=== PATIENT | female | born 1950 | race Caucasian/White ===

== ENCOUNTER → 2016-12-16 | Outpatient (CLI) | payer OTHER ==
[~2016-12-16] MED LIST: AMLO-114 PO; AMLO10TA88 PO; ASCA500 PO; BNC/40 PO; CLR10 PO; EZET10TA47 PO; HYDR25TA4 PO; KRIL1000; METO100T14 PO; METO50TA17 PO; MISCCAP80 PO; MULTTAB58 PO; PRAV20TA2 PO; PRVC/40 PO; RXC5 PO; SOLI5TAB2 PO
--- NOTE | 2016-12-16 14:53 | DIAGNOSTIC IMAGING REPORT ---
MRI OF THE LUMBAR SPINE WITHOUT IV CONTRAST CLINICAL HISTORY: Low back pain. Right hip pain. COMPARISON STUDY: CT scan of the abdomen and pelvis dated 08/09/2013. TECHNIQUE: MRI of the lumbar spine is performed utilizing various T1 and T2-weighted sequences in the axial and sagittal planes. IV contrast was not administered for this examination. FINDINGS: Lumbar spine: Vertebral body height and alignment are maintained throughout the lumbar spine. No destructive bony lesion is seen. Hemangiomas are identified within the bodies of L1, L2, and L5. The transverse and spinous processes appear intact. There is no evidence of spondylolysis. Intervertebral discs: There is mild degenerative disc desiccation throughout the lumbar spine. The disc heights appear preserved. Spine: The visualized spinal cord is normal in morphology and signal intensity. The conus medullaris terminates at the level of L1. The nerve roots of the cauda equina are normal in morphology. L1-L2: Unremarkable. L2-L3: There is minimal posterior disc bulge. In conjunction with hypertrophy of the ligamentum flavum, there is minimal acquired compromise of the central canal with a minimum AP diameter of 10 mm. There is mild bilateral subarticular stenosis. Facet arthropathy is of no consequence. The neural foramina are widely patent. L3-L4: There is minimal posterior disc bulge. In conjunction with hypertrophy of the ligamentum flavum, there is moderate central canal stenosis at this level. The minimum AP canal diameter measures 6 mm. Facet arthropathy is of no consequence. The neural foramina are patent. There is mild bilateral subarticular stenosis. L4-L5: There is minimal posterior disc bulge. The central canal is patent. Facet arthropathy is of no consequence. There is a left-sided facet effusion. There is minimal bilateral subarticular stenosis. L5-S1: Facet arthropathy is of no consequence. The central canal and neural foramina are widely patent. Sacrum: Visualized sacrum is normal in morphology and signal intensity. There are two Tarlov cysts identified at the S1 and S2 levels which measure up to 1.7 cm. Soft tissues: There is mild fatty atrophy of the paraspinous musculature. Subcentimeter cyst is identified in the left kidney. The imaged retroperitoneal structures are otherwise grossly unremarkable but incompletely evaluated. A circumaortic left renal vein is incidentally noted. IMPRESSION: 1. Lumbosacral spondylosis as above with moderate acquired compromise of the central canal at L3-L4. See discussion for detailed [id number] analysis. 2. No destructive bony lesion is identified. Dictated: 12/16/2016 2:09 PM Transcribed: 12/16/2016 2:52 PM [email or web address] Electronically signed by: Yuri Sol M.D. 12/16/2016 2:56 PM Dictated Date/Time: 12/16/2016 2:09 PM
== END | disposition home or self-care (01) ==
LOC: C.MRIBC 12:59
PROVIDERS: ATTEND Pain Medicine Interventional Pain Medicine
DX: M47.817 Spondylosis without myelopathy or radiculopathy, lumbosacral region (principal)

== ENCOUNTER 2017-03-24 09:53 | Inpatient (IN) | payer OTHER, MEDICARE ==
[2017-03-16 14:01] VITALS: BMI 49.0
--- NOTE | 2017-03-16 14:22 | PAT Medication Instructions ---
Service Date Mar 16, 2017. Current Home Medication List Amlodipine (Norvasc), 10 MG PO QAM Ascorbic Acid (Vitamin C), 500 MG PO QAM Hydrochlorothiazide (Hctz), 25 MG PO QAM Loratadine (Claritin), 10 MG PO QAM Metoprolol Tartrate (Metoprolol Tartrate), 50 MG PO BID Multiple Vitamin (Multivitamin), 1 TAB PO QAM Olmesartan Medoxomil (Benicar), 40 MG PO QAM Pravastatin Sod (Pravastatin Sodium), 40 MG PO HS Probiotic Product (Probiotic), 1 CAP PO HS Medication Instructions For Your Scheduled Surgery - Hold the following medications the morning of surgery: Ascorbic Acid (Vitamin C), 500 MG PO QAM Hydrochlorothiazide (Hctz), 25 MG PO QAM Loratadine (Claritin), 10 MG PO QAM Multiple Vitamin (Multivitamin), 1 TAB PO QAM Olmesartan Medoxomil (Benicar), 40 MG PO QAM - Take the following medications the morning of surgery with a sip of water OTHERWISE NOTHING TO EAT OR DRINK AFTER MIDNIGHT: Amlodipine (Norvasc), 10 MG PO QAM Metoprolol Tartrate (Metoprolol Tartrate), 50 MG PO BID - Take the following medications as scheduled the night before surgery: Pravastatin Sod (Pravastatin Sodium), 40 MG PO HS Probiotic Product (Probiotic), 1 CAP PO HS Metoprolol Tartrate (Metoprolol Tartrate), 50 MG PO BID If you have any questions please call us at [phone] or [phone] or [phone]
--- NOTE | 2017-03-16 15:13 | DIAGNOSTIC IMAGING REPORT ---
CHEST 2 VIEWS ROUTINE CLINICAL HISTORY: Preoperative chest COMPARISON STUDY: No previous studies for comparison. FINDINGS: The heart is mildly enlarged. There is aortic tortuosity. There is no focal pulmonary consolidation. There is no failure. There are no pleural effusions. Degenerative changes are present within the spine.[ IMPRESSION: No active disease in the chest. Electronically signed by: Juan Manuel Sidhu M.D. 03/16/2017 3:10 PM Dictated Date/Time: 03/16/2017 3:10 PM
[2017-03-16 15:31] LABS: URINE APPEARANCE CLEAR (CLEAR); URINE BILIRUBIN NEG (NEG); URINE COLOR YELLOW; URINE EPITHELIAL CELL AUTO >30 /lpf (0-5); URINE NITRITE NEG (NEG); URINE SPECIFIC GRAVITY 1.021 (1.000-1.030); UROBILINOGEN NEG (NEG)
[2017-03-16 15:32] LABS: MANUAL MICROSCOPIC REQUIRED? NO; REVIEW REQ? NO
[2017-03-16 16:03] LABS: BUN/CREATININE RATIO 16.1 (10-20); CALCIUM 9.5 mg/dl (8.5-10.1); CREATININE 1.1 mg/dl (0.60-1.20); POTASSIUM 3.4 mmol/L (3.5-5.1)
[~2017-03-24] VITALS: Ht 165.1 cm; Wt 134.7 kg
[2017-03-24] VITALS (8 sets, daily range): BP systolic 96–140; BP diastolic 56–82; PULSE 75–105; TEMP 36.3–36.7; O2SAT 92–96; Ht 165.1 cm; Wt 134.7 kg
[~2017-03-24 09:53] MED LIST changes: -AMLO10TA88 PO; +CEFAZOLIN 3000 MG/65 ML D5W IV SCH; -EZET10TA47 PO; -KRIL1000; +LACTATED RINGER'S 1000ML 1,000 ML IV SCH; -METO100T14 PO; -PRAV20TA2 PO; -RXC5 PO; -SOLI5TAB2 PO
[2017-03-24] MEDS ORDERED: MEPERIDINE HCL 25 MG/ML CARP IV PRN (10:15)
[2017-03-24] MEDS ORDERED: HYDROmorphone INJ 1 MG/ML SYR IV PRN (10:15)
[2017-03-24] MEDS ORDERED: FENTANYL CITRATE INJ 50 MCG/1 ML 2 ML VIAL IV PRN (10:15)
[2017-03-24] MEDS ORDERED: EpHEDrine SULFATE INJ 50 MG/ML AMP IV PRN (10:15)
[2017-03-24] MEDS ORDERED: ATROPINE SULFATE 0.1 MG/ML 5ML SYR IV PRN (10:15)
[2017-03-24] MEDS ORDERED: LABETALOL HCL IV 5 MG/ML 20ML IV PRN (10:15)
[2017-03-24] MEDS ORDERED: ONDANSETRON INJ 2 MG/ML 2 ML VIAL IV PRN ×2 (10:15→15:15)
--- NOTE | 2017-03-24 12:34 | History and Physical ---
History & Physical Date Mar 24, 2017. Chief Complaint back and leg pain History of Present Illness The patient is a 67 year old female with complaints of Additional History Hepatic Disease: No Endocrine Disorder: No Kidney Disease: No Hypertension: No Heart Disease: No Bleeding Tendencies: No Infectious Diseases: No Allergies Coded Allergies: Diazepam (Verified Allergy, Intermediate, ANAPHYLAXIS, 03/24/17) PATIENT BECAME VERY HYPER Chlordiazepoxide (Verified Allergy, Mild, ANAPHYLAXIS, 03/24/17) PATIENT BECAME VERY HYPER Home Medications Scheduled Amlodipine (Norvasc), 10 MG PO QAM Ascorbic Acid (Vitamin C), 500 MG PO QAM Hydrochlorothiazide (Hctz), 25 MG PO QAM Loratadine (Claritin), 10 MG PO QAM Metoprolol Tartrate (Metoprolol Tartrate), 50 MG PO BID Multiple Vitamin (Multivitamin), 1 TAB PO QAM Olmesartan Medoxomil (Benicar), 40 MG PO QAM Pravastatin Sod (Pravastatin Sodium), 40 MG PO HS Probiotic Product (Probiotic), 1 CAP PO HS Physical Examination Skin: warm/dry, no rash Eyes: normal inspection, EOMI, sclerae normal ENT: normal ENT inspection, pharynx normal Head: normocephalic, atraumatic Neck: supple, no adenopathy, trachea midline Respiratory/Chest: lungs clear, normal breath sounds, no respiratory distress Cardiovascular: regular rate, rhythm, no edema, no murmur Abdomen / GI: normal bowel sounds, non tender Back: normal inspection Extremities: normal inspection, normal range of motion Neurologic/Psych: no motor/sensory deficits, alert, normal reflexes, oriented x 3 Diagnosis lumbar stenosis Plan of Treatment decompression fusion L3-4
--- NOTE | 2017-03-24 12:35 | History & Physical Bridge Note ---
H&P Re-Evaluation Bridge Note: I have examined the patient, reviewed the History & Physical and in the interval since the performance of the History & Physical I have noted the following changes of clinical significance: No changes noted
[2017-03-24] MEDS ORDERED: FENTANYL CITRATE INJ 50 MCG/1 ML 2 ML VIAL ONE ×3 (12:45→15:38)
[2017-03-24] MEDS ORDERED: BUPIVACAINE/EPINEPHRINE 0.5% MPF 1:200,000 30 ML VIAL ONE (13:10)
[2017-03-24] MEDS ORDERED: SODIUM CHLORIDE 0.9% PF 50 ML VIAL ONE (13:10)
[2017-03-24] MEDS ORDERED: BACITRACIN 50000 UNIT VIAL ONE (13:10)
[2017-03-24] MEDS ORDERED: MIDAZOLAM HCL 1 MG/ML 2ML VIAL ONE (13:17)
[2017-03-24] MEDS ORDERED: HYDROmorphone INJ 2 MG/ML SYR/VIAL ONE ×2 (13:55→14:13)
[2017-03-24] MEDS ORDERED: LIDOCAINE HCL 2% 2 ML VIAL (20MG/ML) ONE (14:17)
[2017-03-24] MEDS ORDERED: DEXAMETHASONE SOD INJ 4 MG/ML VIAL ONE (14:17)
[2017-03-24] MEDS ORDERED: ROCURONIUM BROMIDE 10 MG/ML 5 ML VIAL ONE (14:17)
[2017-03-24] MEDS ORDERED: ONDANSETRON INJ 2 MG/ML 2 ML VIAL ONE (14:17)
[2017-03-24] MEDS ORDERED: PROPOFOL IV EMULSION 10 MG/ML 20 ML VIAL IV ONE (14:17)
[2017-03-24] MEDS ORDERED: SODIUM CHLORIDE 0.9% 1000ML 1,000 ML IV SCH (15:11)
--- NOTE | 2017-03-24 15:11 | [facility] Post Operative Brief Note ---
Immediate Operative Summary Operative Date Mar 24, 2017. Pre-Operative Diagnosis Lumbar Spinal Stenosis Post-Operative Diagnosis same as pre-operative Procedure(s) Performed L3-4 DECOMPRESSION AND INSTRUMENTED FUSION, INTERBODY FUSION L3-4, USE OF INFUSE AND EMI Surgeon Dr. Jaswinder Cormier Pharmacist Manager Surgeon(s) Queenie Sargent PA-C Estimated Blood Loss 250ml Findings stenosis Specimens None
[2017-03-24] MEDS ORDERED: ACETAMINOPHEN IV 100 ML IV PRN (15:15)
[2017-03-24] MEDS ORDERED: BISACODYL 10 MG SUPP PR PRN (15:15)
[2017-03-24] MEDS ORDERED: DO NOT ADMINISTER PNEUMOCOCCAL VACCINE PRN ×2 (15:15)
[2017-03-24] MEDS ORDERED: METOCLOPRAMIDE HCL INJ 5 MG/ML 2 ML VIAL IV PRN (15:15)
[2017-03-24] MEDS ORDERED: NALOXONE HCL 0.4 MG/1 ML VIAL/CARP IV PRN ×2 (15:15)
[2017-03-24] MEDS ORDERED: PROMETHAZINE HCL INJ 12.5 MG in SODIUM CHLORIDE 0.9% 50ML 50 ML IV PRN (15:15)
[2017-03-24] MEDS ORDERED: SOD PHOSPHATE/SOD BIPHOSPHATE ENEMA 132 ML BTL PR PRN (15:15)
[2017-03-24] MEDS ORDERED: hydrOXYzine HCL 25 MG TAB PO PRN (15:15)
[2017-03-24] MEDS ORDERED: MAGNESIUM HYDROXIDE SUSP 30 ML UDC PO PRN (15:15)
[2017-03-24] MEDS ORDERED: LORAZEPAM 0.5 MG TAB PO PRN (15:15)
[2017-03-24] MEDS ORDERED: ACETAMINOPHEN 500 MG TAB PO PRN (15:15)
[2017-03-24] MEDS ORDERED: FAMOTIDINE 20 MG TAB PO PRN (15:15)
[2017-03-24] MEDS ORDERED: DO NOT ADMINISTER FLU VACCINE PRN ×3 (15:15)
[2017-03-24] MEDS ORDERED: ALUMINUM/MAGNESIUM SUSP 30 ML UDC PO PRN (15:15)
[2017-03-24] MEDS ORDERED: LORAZEPAM INJ 0.5 MG in SYRINGE 0 ML IV PRN (15:15)
[2017-03-24] MEDS ORDERED: HYDROmorphone HCL 0.5MG/ML 50 ML CASSETTE ONE (15:36)
--- NOTE | 2017-03-24 15:44 | OPERATIVE REPORT ---
DATE OF OPERATION: 03/24/2017 PREOPERATIVE DIAGNOSIS: Spinal stenosis, spondylolisthesis. POSTOPERATIVE DIAGNOSIS: Same with facet cyst on the left. PROCEDURE PERFORMED: 1. Lumbar decompression, medial facetectomy and foraminotomies L2-L3, L3-L4. 2. Posterior spinal fusion L3-L4. 3. Placement posterior instrumentation using Orthros rods and screws, L3-L4. 4. Interbody fusion L3-L4. 5. Placement of PEEK cage 12 x 22 mm at L3-L4. 6. Placement of locally harvested morselized autograft posterior gutters. 7. Placement of Infuse collagen sponge combined with Mastergraft in posterior gutters and Lyric bone grafting interbody space. SURGEON: Dr. Jaswinder Cormier. REHABILITATION ATTENDANT: Queenie Sargent PA-C. Due to the complex nature of the procedure, the entire surgery was performed with the pharmacy affairs assistant of Queenie Sargent PA-C. The funeral assistant, under direct supervision, was involved in the actual performance of all aspects of the surgical procedure including hemostasis, tissue retraction and incision, instrument management, patient positioning, and wound closure. ANESTHESIA: General. DISPOSITION: The patient was awakened and taken to PACU in stable condition. HISTORY OF PATIENT'S PROBLEMS: This is a 67-year-old female well known to me that presents with the above-mentioned diagnosis. After failing an extensive course of nonoperative care, elected to undergo the above-mentioned procedure. Risks, benefits, pros, cons, and alternatives were outlined in detail preoperatively. PROCEDURE: The patient was met with preoperatively, the case discussed and all questions were addressed. At that point the patient was taken back to operative suite and after undergoing successful general intubation by the department of anesthesia was placed in prone position on Isac table atop Nahun frame. All bony prominences were well padded and the eyes were inspected to ensure there was no external pressure placed upon them. At this point, lumbar spine was prepped and draped in normal sterile fashion. Sharp dissection with the assistance of Bovie cautery performed down to and exposing the lamina and transverse processes of L4-L5 bilaterally. From a caudal to cephalad fashion, complete laminectomy of L4 was performed, partial laminectomy of L3-L4 was performed, a complete laminectomy of L3 was performed and partial laminectomy of L2 was performed addressing severe lateral recess and foraminal stenosis as well as facet cyst at L3-4 level on the left. After complete decompression, pedicle screws were then placed in L3-L4 bilaterally with assistance of fluoroscopy and appropriate size gilda provisionally placed. Through a transforaminal approach on the left, a complete discectomy of L3-L4 was performed, endplates curetted to subcortical bleeding bone and a 12 x 22 mm PEEK cage filled with Lyric bone grafting tapped into position. The rods were then compressed, locked into final position bilaterally and transverse processes of 3-4 burred to subcortical bleeding bone. Infuse collagen sponge combined with Mastergraft and locally harvested morselized autograft was placed in the posterior gutters. A 7 flat FABIANA drain was inserted. Incision was closed with 1 Vicryl in the fascia, 2-0 Vicryl subcutaneously, 4-0 Monocryl for final skin closure. Steri-Strips and sterile dressing was placed. The patient was awakened and taken to PACU in stable condition. I attest to the content of the Intraoperative Record and any orders documented therein. Any exceptio ns are noted below.
[2017-03-24] MEDS: HYDROmorphone HCL 0.5MG/ML 50 ML CASSETTE IV PRN ×2 (16:47→19:11)
--- NOTE | 2017-03-24 16:59 | Anesthesiology Progress Note ---
Anesthesia Post Op Note Date & Time Mar 24, 2017 at 16:58 Vital Signs Pain Intensity: 2.0 Vital Signs Past 12 Hours Date Time Temp Pulse Resp B/P Pulse Ox O2 Delivery O2 Flow Rate FiO2 03/24/17 16:48 36.5 81 18 140/78 92 Nasal Cannula 4.0 03/24/17 16:30 36.8 91 16 148/69 95 Nasal Cannula 4 03/24/17 16:15 36.8 90 16 140/74 95 Nasal Cannula 4 03/24/17 16:00 88 16 138/79 96 Nasal Cannula 4 03/24/17 15:50 82 16 146/73 99 Nasal Cannula 4 03/24/17 15:40 88 16 131/73 99 Mask 10 03/24/17 15:30 36.3 80 16 135/73 99 Mask 10 03/24/17 10:16 36.7 75 20 127/82 96 Room Air Notes Mental Status: alert / awake / arousable, participated in evaluation Pt Amnestic to Procedure: Yes Nausea / Vomiting: adequately controlled Pain: adequately controlled Airway Patency, RR, SpO2: stable & adequate BP & HR: stable & adequate Hydration State: stable & adequate Anesthetic Complications: no major complications apparent
[2017-03-24] MEDS: SODIUM CHLORIDE 0.9% 1000ML 1,000 ML IV SCH ×2 (17:58→22:00)
[2017-03-24] MEDS: DOCUSATE SODIUM/SENNA 50/8.6MG TAB PO SCH (21:12)
[2017-03-24] MEDS: PRAVASTATIN SOD 40 MG TAB PO SCH (21:12)
[2017-03-24] MEDS: METOPROLOL TARTRATE 50 MG TAB PO SCH (21:12)
[2017-03-24] MEDS: DEXAMETHASONE INJ 6 MG in SYRINGE 0 ML IV SCH (22:00)
[2017-03-24] MEDS: CEFAZOLIN IV 3,000 MG in DEXTROSE 5% 50ML 50 ML IV SCH (22:00)
[2017-03-25] VITALS (7 sets, daily range): BP systolic 110–131; BP diastolic 66–76; PULSE 77–90; TEMP 36.4–36.7; O2SAT 91–97
[2017-03-25] MEDS: SODIUM CHLORIDE 0.9% 1000ML 1,000 ML IV SCH (04:39)
[2017-03-25] MEDS ORDERED: DC PCA SCH (06:00)
[2017-03-25] MEDS ORDERED: HYDROmorphone INJ 0.5 MG/0.5 ML SYR IV PRN (06:00)
[2017-03-25] MEDS: CEFAZOLIN IV 3,000 MG in DEXTROSE 5% 50ML 50 ML IV SCH (06:02)
[2017-03-25] MEDS: DEXAMETHASONE INJ 6 MG in SYRINGE 0 ML IV SCH ×2 (06:02→14:11)
[2017-03-25 06:46] LABS: COMPLETE YES; HEMATOCRIT 35.1 % (37-47); IG% 0.2 %; LYMPH % 6.1 %; LYMPH ABS # 0.68 K/uL (1.2-3.4); MEAN CELL VOLUME 89.5 fL (80-100); MEAN CORPUSCULAR HEMOGLOBIN 28.8 pg (25-34); MEAN CORPUSCULAR HGB CONC 32.2 g/dl (32-36); NEUT % 91.7 %; PLATELET COUNT 191 K/uL (130-400); RED BLOOD COUNT 3.92 M/uL (4.2-5.4); WHITE BLOOD COUNT 11.11 K/uL (4.8-10.8)
[2017-03-25 07:19] LABS: BUN/CREATININE RATIO 23.5 (10-20); CALCIUM 8.4 mg/dl (8.5-10.1); CREATININE 0.88 mg/dl (0.60-1.20); POTASSIUM 3.8 mmol/L (3.5-5.1)
--- NOTE | 2017-03-25 07:31 | DIAGNOSTIC IMAGING REPORT ---
INTRAOPERATIVE RADIOGRAPHS CLINICAL HISTORY: L3-L4 spinal fusion. Fluoroscopy time: 15 seconds FINDINGS: 2 spot fluoroscopic views of the lumbar spine are presented. There is evidence of discectomy at L3-L4 with laminectomy and posterior fusion at this level. Interpedicular screws are present at both L3 and L4. The orthopedic hardware appears intact. IMPRESSION: Intraoperative images from L3 -L4 spinal fusion as above. Electronically signed by: Yuri Sol M.D. 03/24/2017 3:23 PM Dictated Date/Time: 03/24/2017 3:22 PM
--- NOTE | 2017-03-25 07:55 | Anesthesiology Progress Note ---
Anesthesia Post Op Note Date & Time Mar 25, 2017 at 07:53 Vital Signs Vital Signs Past 12 Hours Date Time Temp Pulse Resp B/P Pulse Ox O2 Delivery O2 Flow Rate FiO2 03/25/17 07:14 36.7 90 19 131/76 97 Room Air 03/25/17 03:50 36.4 90 16 127/70 95 Nasal Cannula 3.0 03/24/17 23:12 36.7 95 16 116/71 94 Nasal Cannula 3.0 03/24/17 21:11 105 102/65 Notes Mental Status: alert / awake / arousable, participated in evaluation Pt Amnestic to Procedure: Yes Nausea / Vomiting: adequately controlled Pain: adequately controlled Airway Patency, RR, SpO2: stable & adequate BP & HR: stable & adequate Hydration State: stable & adequate Anesthetic Complications: no major complications apparent
[2017-03-25] MEDS: METOPROLOL TARTRATE 50 MG TAB PO SCH ×2 (08:49→21:29)
[2017-03-25] MEDS: AMLODIPINE BESYLATE 5 MG TAB PO SCH (08:49)
[2017-03-25] MEDS: OLMESARTAN MEDOXOMIL 40 MG TAB PO SCH (08:49)
[2017-03-25] MEDS: LORATADINE 10 MG TAB PO SCH (08:49)
[2017-03-25] MEDS: HYDROCHLOROTHIAZIDE 25 MG TAB PO SCH (08:50)
[2017-03-25] MEDS: OXYCODONE HCL IR 5 MG TAB (IMMEDIATE RELEASE) PO PRN ×2 (08:53→18:29)
--- NOTE | 2017-03-25 10:03 | Clinical Documentation Query ---
CLINICAL DOCUMENTATION QUERY Dr. CONLEY, In your clinical opinion does this patient have: ( ) Morbid obesity ( ) Other explanation of clinical findings (Please Explain) ( ) Unable to determine (Please Define) ( ) Need to Discuss ( ) Not Agree The medical record reflects the following clinical findings, treatment, and risk factors. Clinical Indicators:BMI documented as 49. BMI: A significantly high (> 40) BMI will impact the severity of illness and risk of mortality of your patient. However, the physician must document a correlating diagnosis in the medical Record. Please clarify and document your clinical opinion in the progress notes and discharge summary. Terms such as "probable", "suspected", "likely", "questionable", "possible", or "still to be ruled out" are acceptable. IF IN AGREEMENT, YOU MUST DOCUMENT ABOVE DIAGNOSTIC STATEMENT IN DAILY PROGRESS NOTES AND DISCHARGE SUMMARY. This document is not part of the patient's record. Thank You, Jocelynn Tlobert RN [phone]
[2017-03-25] MEDS ORDERED: NURSING VERBAL MED ORDER ONE (11:00)
[2017-03-25] MEDS ORDERED: RXC5 PO (14:10)
--- NOTE | 2017-03-25 14:10 | Discharge Instructions ---
Discharge Instructions Date of Service Mar 25, 2017. Admission Reason for Admission: Lumbar Spinal Stenosis Discharge Discharge Diagnosis / Problem: stenosis Discharge Goals Goal(s): Improve function Activity Recommendations Activity Limitations: per Instructions/Follow-up section . Instructions / Follow-Up Instructions / Follow-Up ACTIVITY RECOMMENDATIONS: SELF CARE INSTRUCTIONS AFTER THORACIC/LUMBAR FUSIONS 1. You may walk to your tolerance. It is good exercise for your legs and back. Expect some back and intermittent leg aches and pains. 2. You may perform "counter-top" level activities (make a sandwich, bethanie with a project, etc.). 3. No bending or lifting of more than 10 pounds or back twisting of any nature (roll like a log when turning in bed). 4. You may ride in a car for 20-30 minutes at a time. No driving until after your first visit with your doctor. 5. Frequent changes of position and restricting sitting to 30 minutes at a time will help limit the amount of back spasms and stiffness you may experience. 6. You may discontinue the use of ambulatory aids (cane, crutches, etc.) once your strength and confidence allow. 7. You may cylinder head assembler the shower and let water strike your incision when you arrive home at least once daily. Do not take a tub bath, sit in a hot tub or go into a swimming pool until after your first recheck in the office. SPECIAL CARE INSTRUCTIONS: VERY IMPORTANT TO READ AND REVIEW A. Your surgical incision has been closed with a cosmetic suture under the skin that will dissolve in about 6 weeks. In 14 days, you can use a pair of clean scissors and cut the suture that is left outside of the skin at the ends of your incision. 1. The small skin tapes can be removed 7 days after surgery if they have not fallen off by that point. 2. You may keep the wound open to air as much as possible to promote healing after post-op day number 5 unless told otherwise by your doctor. 3. If you think the wound looks like it is becoming infected (redness or worsening drainage) and/or you are experiencing fever, chill or worsening back pain and muscle spasms, contact the office so that we may evaluate you as soon as possible. B. Complications are uncommon, but please contact us if you have any signs or symptoms of: 1. wound infection (fever higher than 102.5 degrees F, redness, separation of wound, drainage, or increasing pain from the incision) 2. blood clots in legs (pain, swelling, redness and warmth in legs) 3. urinary tract infection (fever higher than 102.5 degrees F, burning upon urination or increased frequency of urination) 4. nerve problems (inability to walk on your toes or heels, numbness, loss of bowel or bladder control) 5. any other symptoms that concern you C. Please call the office at if you have any concerns or questions about your operation or recovery. D. No smoking! Smoking drastically decreases the chance of a solid fusion. E. Do not take any anti-inflammatory medications (Indocin, Advil, Motrin, Aspirin, Naprosyn, etc.) as these may inhibit the chance of a solid fusion. Tylenol is okay to take for pain. MANAGING PAIN AFTER SPINAL SURGERY 1. Narcotic medication is intended for short-term use and will be provided for surgical pain. Surgical pain usually lasts for a period of 4-6 weeks. Narcotic medication includes Percocet, Vicodin, Darvocet, Tylenol #3 or Lortab. 2. Longer-term pain is more appropriately treated with non-narcotic medication such as Tylenol ES. 3. Muscle spasm is not appropriately treated with narcotics. Muscle relaxers such as Soma, Flexeril or Skelaxin can be used along with Tylenol ES. 4. Remember that we all live with some "aches and pains". This is not unusual or uncommon after an injury or as we get older. a. Back pain is expected and may include muscle spasms for 4 to 6 weeks after surgery. The pain should gradually improve. If the pain worsens for no apparent reason, please contact the office. b. Intermittent leg pain may also be experienced and should not be concerned about unless it worsens for no apparent reason. If so, please contact the office. 5. We will provide appropriate medication within the normal guidelines of their prescribed use. We will also be very cautious and aware of potential abuse and extended duration of patients' medication needs. a. Pain medications are for your comfort and to assist with sleep and rest so that the tissue can heal. They are not provided in order to return to normal activity and should not be used through the day. To do so or worsening pain at night can result from ongoing tissue damage and development of tolerance to the prescribed medicine. 6. Please allow 2-3 days to process refills. Prescriptions will not be mailed but must be picked up at the office. FOLLOW UP VISIT: Keep your scheduled follow-up appointment. Any questions, please call the office at . Current Hospital Diet Patient's current hospital diet: Regular Diet Discharge Diet Recommended Diet: Regular Diet Procedures Procedures Performed: L3-4 DECOMPRESSION AND INSTRUMENTED FUSION, INTERBODY FUSION L3-4, USE OF INFUSE AND EMI Pending Studies Studies pending at discharge: no Medical Emergencies . Who to Call and When: Medical Emergencies: If at any time you feel your situation is an emergency, please call 911 immediately. . Non-Emergent Contact Non-Emergency issues call your: Primary Care Provider . "Provider Documentation" section prepared by Jaswinder Cormier. . VTE Core Measure Inpt VTE Proph given/why not?: Kavin Vallejo, SCD's
--- NOTE | 2017-03-25 14:26 | PROGRESS NOTE ---
DATE: 03/25/2017 DATE: 03/25/2017. SUBJECTIVE: Postop day 1. Back pain is controlled. Leg pain markedly improved. Vital signs stable. T-max 36.7. FABIANA drained 125 mL today. Hematocrit stable at 35.1. OBJECTIVE: On exam she is ambulating halls, has good strength to testing. Appears comfortable. ASSESSMENT: Status post lumbar decompression and fusion. PLAN: At this time, will maintain the FABIANA drain another 24 hours and reassess her tomorrow, most likely home Tuesday or Tuesday with home health.
[2017-03-25] MEDS: PRAVASTATIN SOD 40 MG TAB PO SCH (21:29)
[2017-03-25] MEDS: DOCUSATE SODIUM/SENNA 50/8.6MG TAB PO SCH (21:29)
[2017-03-26] MEDS: POLYETHYLENE (MIRALAX) 17 GM PACK PO SCH ×3 (06:26→17:02)
[2017-03-26] MEDS: OXYCODONE HCL IR 5 MG TAB (IMMEDIATE RELEASE) PO PRN ×2 (06:26→15:01)
[2017-03-26 06:55] VITALS: BP 128/83; PULSE 67; TEMP 36.6; O2SAT 97
[2017-03-26] MEDS: AMLODIPINE BESYLATE 5 MG TAB PO SCH (07:31)
[2017-03-26] MEDS: OLMESARTAN MEDOXOMIL 40 MG TAB PO SCH (07:31)
[2017-03-26] MEDS: LORATADINE 10 MG TAB PO SCH (07:32)
[2017-03-26] MEDS: METOPROLOL TARTRATE 50 MG TAB PO SCH ×2 (07:32→20:57)
[2017-03-26] MEDS: HYDROCHLOROTHIAZIDE 25 MG TAB PO SCH (07:32)
--- NOTE | 2017-03-26 09:10 | DISCHARGE SUMMARY ---
PRINCIPAL DIAGNOSIS: Spinal stenosis. HOSPITAL COURSE FOLLOWS: On March 24, the patient underwent lumbar decompression and fusion, tolerated this well and taken to the orthopedic floor postoperatively. Postop day #1, she was up and ambulatory, progressed to postop day #2. Pain well controlled. FABIANA drain decreased appropriately. Subsequently, discharged home with home health. Discharge orders and instructions found on the chart for further review.
[2017-03-26] MEDS ORDERED: NURSING VERBAL MED ORDER ONE (12:00)
[2017-03-26] MEDS ORDERED: BISACODYL 10 MG SUPP PR ONE (12:30)
[2017-03-26] MEDS: SIMETHICONE 80 MG CHEW PO PRN ×2 (13:00→20:56)
[2017-03-26 15:16] VITALS: BP 128/76; PULSE 71; TEMP 36.8; O2SAT 92
[2017-03-26 20:52] VITALS: BP 146/76; PULSE 78
[2017-03-26] MEDS: PRAVASTATIN SOD 40 MG TAB PO SCH (20:57)
[2017-03-26] MEDS: DOCUSATE SODIUM/SENNA 50/8.6MG TAB PO SCH (20:57)
[2017-03-26 23:05] VITALS: BP 116/69; PULSE 66; TEMP 36.7; O2SAT 91
[2017-03-27] MEDS: SIMETHICONE 80 MG CHEW PO PRN ×2 (02:52→11:56)
[2017-03-27] MEDS: POLYETHYLENE (MIRALAX) 17 GM PACK PO SCH ×3 (05:12→11:58)
[2017-03-27 06:51] VITALS: BP 145/80; PULSE 96; TEMP 36.9; O2SAT 93
[2017-03-27] MEDS: HYDROCHLOROTHIAZIDE 25 MG TAB PO SCH (08:46)
[2017-03-27] MEDS: AMLODIPINE BESYLATE 5 MG TAB PO SCH (08:46)
[2017-03-27] MEDS: LORATADINE 10 MG TAB PO SCH (08:46)
[2017-03-27] MEDS: METOPROLOL TARTRATE 50 MG TAB PO SCH (08:46)
[2017-03-27] MEDS: OLMESARTAN MEDOXOMIL 40 MG TAB PO SCH (08:46)
[2017-03-27] MEDS: OXYCODONE HCL IR 5 MG TAB (IMMEDIATE RELEASE) PO PRN (10:36)
--- NOTE | 2017-03-27 11:40 | Orthopedic Progress Note ---
Orthopedic Progress Note Date of Service Mar 27, 2017. Subjective Post OP Day: 3 Reports: feeling well, pain controlled w PO medications Additional Notes: had BM yest. abd bloating resolved with flatus Objective calves soft nontender, N/V intact, dressing C/D/I, A&O x3 Date Time Temp Pulse Resp B/P Pulse Ox O2 Delivery O2 Flow Rate FiO2 03/27/17 09:50 Room Air 03/27/17 06:51 36.9 96 18 145/80 93 Room Air 03/26/17 23:05 36.7 66 18 116/69 91 Room Air 03/26/17 20:52 78 146/76 03/26/17 19:45 Room Air 03/26/17 15:16 36.8 71 16 128/76 92 Room Air Assessment & Plan Assessment: HVC 30cc ON, minimal narc usage and pain controlled, bowel function better Plan: d/c drain, d/c home
[2017-03-27 12:35] VITALS: BP 145/80; PULSE 96; TEMP 36.9; O2SAT 93
[2017-09-26] MEDS ORDERED: DICL-201 PO (13:58)
[2017-10-25] MEDS ORDERED: RXC5 PO (21:16)
[2017-10-25] MEDS ORDERED: ACET-24 PO (21:16)
[2017-10-25] MEDS ORDERED: MORP-157 PO (21:16)
[2017-10-25] MEDS ORDERED: ASPEC325 PO (21:16)
== END 2017-03-27 13:31 | disposition home health service (06) | DRG 460 ==
LOC: ENRESERVTM → ENRESERVDT → C.ACU 09:53 → C.3E 12:40
PROVIDERS: ADMIT Orthopaedic Surgery Orthopaedic Surgery of the Spine; ATTEND Orthopaedic Surgery Orthopaedic Surgery of the Spine
PROC: 0SG0071 Fusion of Lumbar Vertebral Joint with Autologous Tissue Substitute, Posterior Approach, Posterior Column, Open Approach (ICD-10-PCS; principal; 2017-03-24 13:15)
PROC: 01NB0ZZ Release Lumbar Nerve, Open Approach (ICD-10-PCS; principal; 2017-03-24 13:15)
PROC: 0SG00AJ Fusion of Lumbar Vertebral Joint with Interbody Fusion Device, Posterior Approach, Anterior Column, Open Approach (ICD-10-PCS; principal; 2017-03-24 13:15)
PROC: 3E0U0GB Introduction of Recombinant Bone Morphogenetic Protein into Joints, Open Approach (ICD-10-PCS; principal; 2017-03-24 13:15)
PROC: 0ST20ZZ Resection of Lumbar Vertebral Disc, Open Approach (ICD-10-PCS; principal; 2017-03-24 13:15)
DX: M48.06 Spinal stenosis, lumbar region (principal); Z68.42 Body mass index [BMI] 45.0-49.9, adult; M43.16 Spondylolisthesis, lumbar region; M71.38 Other bursal cyst, other site; I10 Essential (primary) hypertension; E78.5 Hyperlipidemia, unspecified; M19.90 Unspecified osteoarthritis, unspecified site; E66.09 Other obesity due to excess calories; Z79.899 Other long term (current) drug therapy

== ENCOUNTER → 2017-05-24 | Outpatient (CLI) | payer OTHER, MEDICARE ==
[~2017-05-24] MED LIST changes: -CEFAZOLIN 3000 MG/65 ML D5W IV SCH; -LACTATED RINGER'S 1000ML 1,000 ML IV SCH; +RXC5 PO
== END | disposition home or self-care (01) ==
LOC: C.LABSPEC 13:14
PROVIDERS: ATTEND Family Medicine
DX: R35.0 Frequency of micturition (principal)

== ENCOUNTER → 2017-06-08 | Outpatient (CLI) | payer OTHER, MEDICARE | END | disposition home or self-care (01) | LOC: C.LABSPEC 13:36 | PROVIDERS: ATTEND Family Medicine | DX: R35.0 Frequency of micturition (principal); R30.0 Dysuria ==

== ENCOUNTER → 2017-09-23 | Outpatient (CLI) | payer OTHER, MEDICARE ==
[~2017-09-23] MED LIST changes: +DICL-201 PO
== END | disposition home or self-care (01) ==
LOC: C.LABSPEC 12:37
PROVIDERS: ATTEND Family Medicine
DX: R30.0 Dysuria (principal)

== ENCOUNTER 2017-10-24 08:12 | Inpatient (IN) | payer OTHER, MEDICARE ==
[2017-09-26 14:01] VITALS: BMI 46.0
--- NOTE | 2017-09-26 14:30 | PAT Medication Instructions ---
Service Date Sep 26, 2017. Current Home Medication List Ascorbic Acid (Vitamin C), 500 MG PO HS Diclofenac (Voltaren), 75 MG PO BID Hydrochlorothiazide (Hctz), 25 MG PO QAM Loratadine (Claritin), 10 MG PO QAM Metoprolol Tartrate (Metoprolol Tartrate), 50 MG PO BID Multiple Vitamin (Multivitamin), 1 TAB PO QAM Pravastatin Sod (Pravastatin Sodium), 40 MG PO QAM Probiotic Product (Probiotic), 1 CAP PO HS Medication Instructions For Your Scheduled Surgery - Check with surgeon for instructions: Diclofenac (Voltaren), 75 MG PO BID - Hold the following medications the morning of surgery: Multiple Vitamin (Multivitamin), 1 TAB PO QAM Loratadine (Claritin), 10 MG PO QAM Hydrochlorothiazide (Hctz), 25 MG PO QAM - Take the following medications the morning of surgery with a sip of water: Pravastatin Sod (Pravastatin Sodium), 40 MG PO QAM Metoprolol Tartrate (Metoprolol Tartrate), 50 MG PO BID - Take the following medications as scheduled the night before surgery: Probiotic Product (Probiotic), 1 CAP PO HS Metoprolol Tartrate (Metoprolol Tartrate), 50 MG PO BID Ascorbic Acid (Vitamin C), 500 MG PO HS If you have any questions please call us at [phone] or [phone] or [phone]
[2017-09-26 15:10] LABS: BASO % 0.3 %; BASO ABS # 0.02 K/uL (0-0.2); COMPLETE YES; EOS % 2.8 %; IG% 0.1 %; LYMPH ABS # 2.11 K/uL (1.2-3.4); MEAN CELL VOLUME 88.9 fL (80-100); MEAN CORPUSCULAR HEMOGLOBIN 29.1 pg (25-34); MEAN CORPUSCULAR HGB CONC 32.8 g/dl (32-36); MONO % 5.2 %; NEUT % 63.6 %; PLATELET COUNT 199 K/uL (130-400); WHITE BLOOD COUNT 7.53 K/uL (4.8-10.8)
[2017-09-26 15:19] LABS: PARTIAL THROMBOPLASTIN RATIO 0.9; PROTHROMBIN TIME (PATIENT) 10.3 SECONDS (9.0-12.0)
[2017-09-26 16:01] LABS: BUN/CREATININE RATIO 23.4 (10-20); CALCIUM 9.3 mg/dl (8.5-10.1); CREATININE 1.22 mg/dl (0.60-1.20); POTASSIUM 3.2 mmol/L (3.5-5.1)
--- NOTE | 2017-10-21 09:47 | HISTORY & PHYSICAL EXAMINATION ---
DATE OF ADMISSION: 10/24/2017 CHIEF COMPLAINT: Bilateral knee pain and discomfort, right side greater than left. HISTORY OF PRESENT ILLNESS: The patient is a 67-year-old female, previous [employer] employee and [employer] employee in [place] who presents for treatment of her knees. She has a history of bilateral knee pain and discomfort. She had both of her knees scoped by Dr. Ritter the left one done in and the right on in . It seemed to help a little bit of the time but over the past several years she has developed increased pain and discomfort in both knees. The left side has been a bit worse than the right recently. She would like to proceed with left knee replacement. PAST MEDICAL HISTORY: 1. Hypertension. 2. Elevated cholesterol. 3. Obesity with a BMI of 47 4. Arthritis. PAST SURGICAL HISTORY: 1. Miscarriages 2. D&C. 3. Ectopic x2. 4. Tubal ligation. 5. Bladder suspension. 6. Ganglion cyst removed from wrist. 7. Left knee scope in . 8. Right knee scope in . 9. Hysterectomy. 10. Bladder repair and ileostomy. 11. Ileostomy reversal. 12. Colonoscopy. 13. Bilateral carpal tunnel releases. 14. Cataract surgery. 15. L3-4 fusion done 03/24/2017. ALLERGIES: Librium and Valium. CURRENT MEDICINES: 1. Metoprolol 50 mg twice a day. 2. Hydrochlorothiazide 25 mg. 3. Pravastatin 40 mg a day. 4. Diclofenac 75 mg twice a day. 5. Claritin 10 6. Multivitamin. 7. Vitamin C. 8. Probiotic. SOCIAL HISTORY: 67-year-old white female. She is from [facility]. She used to work at [employer] [place] and then [employer]. She is . Rare alcohol intake. FAMILY HISTORY: Lung cancer and bone cancer. REVIEW OF SYSTEMS: Negative for diabetes, neurologic problems, vascular problems or bleeding disorders. She just recently had spine surgery. No known bleeding problems. PHYSICAL EXAMINATION: GENERAL: Reveals this is a pleasant, fairly large, middle-aged female. She looks to be in pretty good health. HEENT: Benign. NECK: Supple. No lymphadenopathy. LUNGS: Clear to auscultation. HEART: Regular rate and rhythm. ABDOMEN: Soft, nontender, nondistended. EXTREMITIES: Grossly neurovascularly intact except as follows: Examination of both knees reveals the patient walks with a bit of a waddling gait. Pretty large soft tissue envelope. Her knee alignment looks pretty neutral bilaterally. Small knee effusion. Range of motion is pretty symmetric with 5 degrees short of full extension to 110 degrees of flexion. No pain with hip motion. X-RAYS: X-rays of both knees reveal advanced bilateral knee DJD. She has complete loss of the medial joint space with tibial femoral subluxation. The left side is a bit worse than the right. ASSESSMENT: 67-year-old female with advanced bilateral knee degenerative joint disease with a history of knee arthroscopy in the past and a recent back surgery. She has failed conservative treatment and would like to start having her knees fixed. PLAN: We are going to take her to the operating room and do a left total knee replacement; that seems to be the most bothersome for her. The risks and benefits of the left total knee replacement were explained to the patient including but not limited to , infection, neurological injury, vascular injury, bleeding problem, pain, limited range of motion, stiffness, failure to relieve her symptoms, incomplete relief of symptoms, need for revision surgery, loss of motion, need for blood transfusion, etc. The patient understands and desires to proceed. Informed consent was obtained. Due to her large size we may put a stem in the tibia. She is planning to be discharged home and using [facility]. We did talk to her about taking her metoprolol the morning of surgery.
[2017-10-24] VITALS (8 sets, daily range): BP systolic 125–149; BP diastolic 75–97; PULSE 57–75; TEMP 36.5–36.9; O2SAT 90–99; Ht 170.2 cm; Wt 135.8 kg
[~2017-10-24] VITALS: Ht 170.2 cm; Wt 135.8 kg
[~2017-10-24 08:12] MED LIST changes: +ACETAMINOPHEN 500 MG TAB PO SCH; -AMLO-114 PO; +ATROPINE SULFATE 0.1 MG/ML 5ML SYR IV PRN; -BNC/40 PO; +BUPIVACAINE 0.25% 30 ML VIAL ONE; +BUPIVACAINE 0.5 % 5 MG/1 ML PF 10ML VIAL ONE; +BUPIVACAINE LIPOSOME 266 MG, BUPIVACAINE/EPINEPHRINE INJ 50 ML, SODIUM CHLORIDE 0.9% PF... INFIL SCH; +CEFAZOLIN 3000MG IV PUSH 15 ML IV SCH; +EpHEDrine SULFATE INJ 50 MG/ML AMP IV PRN; +FAMOTIDINE 20 MG TAB PO SCH; +FENTANYL CITRATE INJ 50 MCG/1 ML 2 ML VIAL IV PRN; +GABAPENTIN 300 MG CAP PO SCH; +LACTATED RINGER'S 1000ML 1,000 ML IV SCH; +LACTATED RINGER'S 1000ML 500 ML IV ONE; +LACTATED RINGER'S 1000ML IV SCH; +METOCLOPRAMIDE HCL 10 MG TAB PO SCH; +ONDANSETRON INJ 2 MG/ML 2 ML VIAL IV PRN; -RXC5 PO; +SCOPOLAMINE 1.5 MG TDSY TD SCH; +TRANEXAMIC ACID INJ 1,000 MG in SYRINGE 0 ML IV SCH
[2017-10-24] MEDS ORDERED: ONDANSETRON INJ 2 MG/ML 2 ML VIAL ONE (09:58)
[2017-10-24] MEDS ORDERED: PROPOFOL IV EMULSION 10 MG/ML 20 ML VIAL IV ONE ×2 (09:58→13:35)
[2017-10-24] MEDS ORDERED: FENTANYL CITRATE INJ 50 MCG/1 ML 2 ML VIAL ONE ×2 (09:58→14:32)
[2017-10-24] MEDS ORDERED: LIDOCAINE HCL 2% 2 ML VIAL (20MG/ML) ONE (09:58)
[2017-10-24] MEDS ORDERED: MIDAZOLAM HCL 1 MG/ML 2ML VIAL ONE ×2 (09:58→12:29)
[2017-10-24] MEDS ORDERED: SODIUM CHLORIDE 0.9% PF 50 ML VIAL ONE (11:21)
[2017-10-24] MEDS ORDERED: VANCOMYCIN HCL 1000MG/20ML VIAL ONE (11:21)
[2017-10-24] MEDS ORDERED: BUPIVACAINE LIPOSOME 1/3% 266 MG/20 ML VIAL INFIL ONE (11:21)
[2017-10-24] MEDS ORDERED: BUPIVACAINE/EPINEPHRINE 0.25% 1:200,000 30 ML VIAL ONE (11:21)
[2017-10-24] MEDS ORDERED: BACITRACIN 50000 UNIT VIAL ONE (11:21)
--- NOTE | 2017-10-24 14:16 | [facility] Post Operative Brief Note ---
Immediate Operative Summary Operative Date Oct 24, 2017. Pre-Operative Diagnosis Advanced Left Knee Degenerative Joint Disease Post-Operative Diagnosis Advanced Left Knee Degenerative Joint Disease Procedure(s) Performed Left Total Knee Arthroplasty Surgeon Dr. Chavez Back Up Scan Coordinator Surgeon(s) ROSIBEL Patel Estimated Blood Loss 50 ml Findings Left Knee DJD Fluids (cc crystalloids) 1500 cc Specimens A. Left Knee Bone and Tissue Drains None Anesthesia Spinal Complication(s) None Disposition Recovery Room / PACU
[2017-10-24] MEDS ORDERED: SILVER SULFADIAZINE 1% CR 50 GM JAR EXT PRN (14:30)
[2017-10-24] MEDS ORDERED: ONDANSETRON INJ 2 MG/ML 2 ML VIAL IV PRN (14:30)
[2017-10-24] MEDS ORDERED: BISACODYL 10 MG SUPP PR PRN (14:30)
[2017-10-24] MEDS ORDERED: METOCLOPRAMIDE HCL INJ 5 MG/ML 2 ML VIAL IV PRN (14:30)
[2017-10-24] MEDS ORDERED: DiphenhydrAMINE HCL 50 MG/ML VIAL IV PRN (14:30)
[2017-10-24] MEDS ORDERED: ZOLPIDEM TARTRATE 5 MG TAB PO PRN (14:30)
[2017-10-24] MEDS ORDERED: ALUMINUM/MAGNESIUM/SIMETH (MAALOX MAX) 30 ML UDC PO PRN (14:30)
[2017-10-24] MEDS ORDERED: MAGNESIUM HYDROXIDE SUSP 30 ML UDC PO PRN (14:30)
--- NOTE | 2017-10-24 14:49 | Anesthesiology Progress Note ---
Anesthesia Post Op Note Date & Time Oct 24, 2017 at 14:49 Vital Signs Pain Intensity: 5 Vital Signs Past 12 Hours Date Time Temp Pulse Resp B/P (MAP) Pulse Ox O2 Delivery O2 Flow Rate FiO2 10/24/17 14:40 62 15 114/69 95 Oxymask 10 10/24/17 14:30 58 14 115/69 98 Oxymask 10 10/24/17 14:21 36.6 62 17 111/77 97 Oxymask 10 10/24/17 09:06 36.8 71 18 140/97 93 Room Air Notes Mental Status: alert / awake / arousable, participated in evaluation Pt Amnestic to Procedure: Yes Nausea / Vomiting: adequately controlled Pain: adequately controlled Airway Patency, RR, SpO2: stable & adequate BP & HR: stable & adequate Hydration State: stable & adequate Neuraxial Anesthesia: was administered, sensory block is resolving Anesthetic Complications: no major complications apparent
--- NOTE | 2017-10-24 14:54 | DIAGNOSTIC IMAGING REPORT ---
L KNEE 1 OR 2 VIEWS ROUTINE HISTORY: 67 years-old Female AP/LATERAL IN PACU LEFT KNEE status post left knee arthroplasty. Degenerative joint disease. COMPARISON: Bilateral knee radiographs 02/24/2017 TECHNIQUE: 2 views of the left knee FINDINGS: Postoperative changes are seen compatible with left knee total joint arthroplasty and patellar resurfacing. Midline anterior skin rian are noted. No periprosthetic fracture or malalignment. Expected postsurgical soft tissue swelling and deep tissue air is noted. IMPRESSION: Status post left knee total joint arthroplasty and patellar resurfacing without complication identified. The above report was generated using voice recognition software. It may contain grammatical, syntax or spelling errors. Electronically signed by: Paulino Mo M.D. 10/24/2017 2:53 PM Dictated Date/Time: 10/24/2017 2:52 PM
[2017-10-24] MEDS: D5W AND 1/2NSS + 20MEQ KCL 1,000 ML IV SCH ×2 (16:30→21:47)
[2017-10-24] MEDS: CHECK SCOPOLAMINE PATCH PLACEMENT SCH ×2 (16:30→23:57)
[2017-10-24] MEDS: KETOROLAC TROMETHAMINE 15 MG/ML VIAL IV. SCH ×2 (16:32→21:45)
[2017-10-24] MEDS: OXYCODONE HCL IR 5 MG TAB (IMMEDIATE RELEASE) PO PRN (17:23)
[2017-10-24] MEDS: FERROUS GLUCONATE 324 MG TAB PO SCH (17:24)
[2017-10-24] MEDS: HYDROmorphone INJ 0.5 MG/0.5 ML SYR IV PRN (18:02)
[2017-10-24] MEDS: CEFAZOLIN IV 2,000 MG in SYRINGE 0 ML IV SCH (20:57)
[2017-10-24] MEDS: TAPENTADOL ER 50 MG TABCR PO SCH (20:57)
[2017-10-24] MEDS ORDERED: TRANEXAMIC ACID INJ 1,000 MG in SODIUM CHLORIDE 0.9% 100ML 100 ML IV ONE (21:00)
[2017-10-24] MEDS: DOCUSATE SODIUM 100 MG CAP PO SCH (21:00)
[2017-10-24] MEDS ORDERED: TRANEXAMIC ACID INJ 1,000 MG in SYRINGE 0 ML IV ONE (21:00)
[2017-10-24] MEDS ORDERED: TRANEXAMIC ACID INJ 1,000 MG in SODIUM CHLORIDE 0.9% 100ML 100 ML IV SCH (21:00)
[2017-10-24] MEDS: ASCORBIC ACID 500 MG TAB PO SCH (21:01)
[2017-10-24] MEDS: ASPIRIN 325 MG ECTAB PO SCH (21:01)
[2017-10-24] MEDS: SENNA 8.6 MG TAB PO SCH (21:01)
[2017-10-24] MEDS: LACTOBACILLUS ACIDOPHILUS 1 GM PACK PO SCH (21:02)
[2017-10-24] MEDS: METOPROLOL TARTRATE 50 MG TAB PO SCH (21:06)
[2017-10-24] MEDS: ACETAMINOPHEN 500 MG TAB PO SCH (21:44)
[2017-10-25] VITALS (7 sets, daily range): BP systolic 111–134; BP diastolic 71–85; PULSE 59–102; TEMP 36.6–37.1; O2SAT 84–97
[2017-10-25] MEDS: KETOROLAC TROMETHAMINE 15 MG/ML VIAL IV. SCH ×4 (03:45→22:37)
[2017-10-25] MEDS: CEFAZOLIN IV 2,000 MG in SYRINGE 0 ML IV SCH (03:45)
[2017-10-25] MEDS: D5W AND 1/2NSS + 20MEQ KCL 1,000 ML IV SCH ×2 (04:17→11:20)
[2017-10-25] MEDS: ACETAMINOPHEN 500 MG TAB PO SCH ×3 (05:41→22:32)
[2017-10-25 06:38] LABS: HEMATOCRIT 36.1 % (37-47); MEAN CELL VOLUME 92.3 fL (80-100); MEAN CORPUSCULAR HEMOGLOBIN 28.6 pg (25-34); MEAN PLATELET VOLUME 10.2 fL (7.4-10.4); PLATELET COUNT 139 K/uL (130-400); RED BLOOD COUNT 3.91 M/uL (4.2-5.4); WHITE BLOOD COUNT 8.63 K/uL (4.8-10.8)
[2017-10-25 07:15] LABS: BUN/CREATININE RATIO 22.4 (10-20); CALCIUM 7.9 mg/dl (8.5-10.1); POTASSIUM 3.7 mmol/L (3.5-5.1)
--- NOTE | 2017-10-25 07:16 | OPERATIVE REPORT ---
DATE OF OPERATION: 10/24/2017 SURGEON: Nelson Chavez MD. GEAR CUTTER: ROSIBEL Valdez. PREOPERATIVE DIAGNOSIS: Left knee degenerative joint disease. POSTOPERATIVE DIAGNOSIS: Same. PROCEDURE PERFORMED: Left cemented posterior stabilized total knee arthroplasty. COMPLICATIONS: None. ESTIMATED BLOOD LOSS: 50 mL. FLUID REPLACEMENT: 1500 mL crystalloid fluid replacement. TOURNIQUET TIME: 91 minutes at 350 mmHg. ANESTHESIA: Spinal with adductor canal block. DRAINS: None. SPECIMENS: Left knee sent for pathology. OPERATIVE INDICATIONS: The patient is a 67-year-old morbidly obese female with a BMI of 48, who has had a long history of bilateral knee pain and discomfort, the left side worse than the right. She has been through extensive conservative treatment. She had both knees scoped about 10 years ago which provided fairly short term and minimal relief. She has been through extensive conservative treatment. X-rays show advanced left knee DJD. The patient is having trouble even getting around and do any activities. She elected to proceed with a total knee arthroplasty on the left side. OPERATIVE FINDINGS: Operative findings revealed advanced left knee DJD. She had grade 4 [id number] disease in all 3 compartments, most severe in the medial side. She had a fixed varus deformity at about 10 degree flexion contracture. Large joint effusion. Very large soft tissue envelope. OPERATIVE IMPLANTS: Operative implants consisted of: 1. Biomet Vanguard size 65 left posterior stabilized femoral component. 2. Biomet size 67 tibial tray with a small cruciate wing, 7.5 mm offset adapter and an 80 x 11 uncemented stem. 3. A 12 mm posterior stabilized polyethylene insert. 4. A 31 x 8 all poly patella. OPERATIVE PROCEDURE: The patient taken to the operating room, identified and placed on the operating table in supine position. All contact areas were appropriately padded. IV antibiotics were provided by the anesthesia team. A spinal anesthetic and adductor canal block had been provided in the holding area. A Alberts catheter was placed in sterile fashion. A left thigh tourniquet was then placed and left lower extremity was then prepped and draped in the usual sterile fashion. Left leg was elevated and exsanguinated with Esmarch and tourniquet was placed at 350 mmHg. An anterior approach of the left knee was then performed through a longitudinal incision centered over the patella. Sharp dissection was carried out through the subcutaneous tissues down to the level of the extensor mechanism. A medial parapatellar was carried out medially. The fat pad was resected from beneath the patellar tendon. The patella was subluxated laterally. I could not really cara the patella due to her large soft tissue envelope. The knee was flexed. The osteophytes were taken off the distal femur. The ACL and PCL were then released from the distal femur and the tibia subluxated anteriorly. I then resected the tibial eminence. I then entered the intramedullary canal with the entry drill. I then reamed up to size 12 for a 12 offset stem. We then used the 12 reamer to cut the tibia. I removed about 2 mm of bone from the most deficient aspect of the medial tibial plateau. Tibia was sized to a size 67. We prepared this for a 7.5 mm offset tray. However, upon placing the tray, I could not get it down and I really felt we were impinging on the cortex so it was downsized 1 mm. After several attempts I was able to get the tray and offset stem to sit appropriately on the tibia. We left this in place. The distal femur was entered with the drill and the IM femoral alignment guide was placed for q 5 degree valgus cut. The distal femoral cutting block was pinned in place. The distal femoral cut was made to take an additional 3 mm of bone off the distal femur. The distal femoral cut was made. The femur was sized to a 65 and the AP cuting guide was placed parallel to the epicondylar axis which was 4 degrees of external rotation. The anterior cut, anterior chamfer cut, posterior cut, and posterior chamfer cuts were made. Box cutting guide was placed and adjusted slightly lateral and the box cut was made. The knee was flexed. The remnants of the medial and lateral menisci were excised. The osteophytes were taken off the posterior aspect of the femur. A trial femoral component was placed. We then trialed the knee and the 12 mm insert fit most appropriately. Attention was then drawn to the patella. The patella was cleaned of all soft tissues. Patella measured 22 mm in thickness and was cut down to 13. The patella was sized to a 31 patella. The lug holes were drilled for a 31 patella and the lateral osteophyte was removed. The knee was taken through range of motion and the patella tracked nicely with no thumbs test. Attention was then drawn toward placement of permanent components. All trial components were removed. Bone plug was placed in the distal femur to limit blood loss. A double batch of Palacos G cement was mixed with an additional gram of vancomycin due to her large size of tissue envelope and history of previous surgery and increased risk of infection. A size 65 posterior stabilized femoral component, size 67 tibial tray with 80 x 11 mm stem with offset of 7.5 mm with a small cruciate wing followed by a 12 mm posterior stabilized polyethylene insert, and a 31 x 8 all poly patella were then cemented in place. The knee was brought out into full extension until cement hardened. A final cement check was then performed. Pericapsular tissues were injected with a total of 100 mL of a combination of 20 mL of Exparel, 30 mL of normal saline, and 50 mL of 0.25% Marcaine with epinephrine. The patient did receive 1 gram of tranexamic acid. The tourniquet was then let down for a final tourniquet time of 91 minutes. Hemostasis was assured with use of electrocautery. The wound was once again irrigated. The extensor mechanism was then closed with a combination of #1 PDS suture and #1 Vicryl suture in a [id number] fashion. The extensor mechanism was checked and found to be intact. Subcutaneous tissues were then closed with 2-0 Dexon suture in a buried interrupted fashion. The skin was closed with skin rian. The leg was then cleaned, dried and a sterile dressing of Xeroform, 4 x 4, sterile cast padding and Vern bandage were applied. The patient was then transferred to the recovery room in stable condition. The patient tolerated the procedure with no complications. All needle and sponge counts were correct at the end of the operation. I attest to the content of the Intraoperative Record and any orders documented therein. Any exceptions are noted below. MTDD
--- NOTE | 2017-10-25 07:39 | Anesthesiology Progress Note ---
Anesthesia Post Op Note Date & Time Oct 25, 2017 at 07:39 Vital Signs Pain Intensity: 5.0 Vital Signs Past 12 Hours Date Time Temp Pulse Resp B/P (MAP) Pulse Ox O2 Delivery O2 Flow Rate FiO2 10/25/17 07:12 36.8 60 18 132/84 (100) 94 Room Air 10/25/17 04:00 36.6 64 18 134/85 (101) 96 Nasal Cannula 2.0 10/24/17 23:55 Room Air 10/24/17 23:50 36.9 75 20 136/85 (102) 97 Nasal Cannula 2.0 10/24/17 19:43 36.5 57 17 136/79 (98) 98 Nasal Cannula 2.0 Notes Mental Status: alert / awake / arousable, participated in evaluation Pt Amnestic to Procedure: Yes Nausea / Vomiting: adequately controlled Pain: adequately controlled Airway Patency, RR, SpO2: stable & adequate BP & HR: stable & adequate Hydration State: stable & adequate Neuraxial Anesthesia: was administered, sensory block resolved Anesthetic Complications: no major complications apparent
[2017-10-25] MEDS: CHECK SCOPOLAMINE PATCH PLACEMENT SCH ×2 (08:19→15:37)
[2017-10-25] MEDS: FERROUS GLUCONATE 324 MG TAB PO SCH ×3 (08:34→18:39)
[2017-10-25] MEDS: DOCUSATE SODIUM 100 MG CAP PO SCH ×2 (08:35→21:46)
[2017-10-25] MEDS: LORATADINE 10 MG TAB PO SCH (08:35)
[2017-10-25] MEDS: ASPIRIN 325 MG ECTAB PO SCH ×2 (08:35→21:46)
[2017-10-25] MEDS: METOPROLOL TARTRATE 50 MG TAB PO SCH ×2 (08:36→21:47)
[2017-10-25] MEDS: HYDROCHLOROTHIAZIDE 25 MG TAB PO SCH (08:36)
[2017-10-25] MEDS: MULTIVITAMIN TAB PO SCH (08:36)
[2017-10-25] MEDS: TAPENTADOL ER 50 MG TABCR PO SCH ×2 (08:37→21:47)
[2017-10-25] MEDS: PANTOprazole SOD 40 MG TAB PO SCH (08:37)
[2017-10-25] MEDS: PRAVASTATIN SOD 40 MG TAB PO SCH (08:37)
[2017-10-25] MEDS ORDERED: MULTIVITAMIN TAB PO SCH (09:00)
--- NOTE | 2017-10-25 09:09 | PROGRESS NOTE ---
DATE: 10/25/2017 DATE: 10/25/2017 SUBJECTIVE: A 67-year-old white female postop day 1 from a left knee replacement. She is doing pretty well. Knee is sore but pain is manageable. No chest pain or shortness of breath. Not feeling dizzy or lightheaded. OBJECTIVE: VITAL SIGNS: Temperature 36.8. Vital signs stable. PHYSICAL EXAMINATION: GENERAL: Reveals a healthy pleasant, middle-aged female. She is sitting up at her bedside chair eating breakfast. She looks pretty comfortable. LUNGS: Clear to auscultation. HEART: Has a regular rate and rhythm. ABDOMEN: Soft, nontender, nondistended. EXTREMITY EXAMINATION: Grossly neurovascularly intact except as follows: Examination of the left lower extremity reveals the dressing to be clean, dry and intact. She can dorsiflex and plantarflex her foot appropriately. She is neurologically intact. LABORATORY DATA: Hemoglobin 11.2, hematocrit 36.1. Electrolytes are stable. ASSESSMENT: A 67-year-old female postop day 1 from left knee replacement, doing pretty well. Pain is controlled. She is neurologically intact. PLAN: 1. DVT prophylaxis including thigh-high TEDs, SCDs, and aspirin twice a day. 2. PT/OT. Weight bear as tolerated. Left total knee protocol. 3. Pain control. Doing well with current pain regimen. 4. Disposition. She is planning to be discharged to home. She is kind of trying to decide whether do home health or outpatient therapy. We will see how therapy goes today.
[2017-10-25] MEDS: OXYCODONE HCL IR 5 MG TAB (IMMEDIATE RELEASE) PO PRN ×2 (10:56→19:15)
[2017-10-25] MEDS: HYDROmorphone INJ 0.5 MG/0.5 ML SYR IV PRN ×2 (12:28→14:37)
[2017-10-25] MEDS: LACTOBACILLUS ACIDOPHILUS 1 GM PACK PO SCH (21:00)
[2017-10-25] MEDS ORDERED: MORP-157 PO (21:16)
[2017-10-25] MEDS ORDERED: ASPEC325 PO (21:16)
[2017-10-25] MEDS ORDERED: RXC5 PO (21:16)
[2017-10-25] MEDS ORDERED: ACET-24 PO (21:16)
--- NOTE | 2017-10-25 21:19 | Discharge Instructions ---
Discharge Instructions Date of Service Oct 25, 2017. Admission Reason for Admission: Left Knee Degenerative Joint Disease Discharge Discharge Diagnosis / Problem: Left Knee Replacement Discharge Goals Goal(s): Decrease discomfort, Improve function, Increase independence, Improve disease control, Therapeutic intervention Activity Recommendations Activity Limitations: per Instructions/Follow-up section Weightbearing Status: Left weightbearing . Instructions / Follow-Up Instructions / Follow-Up ACTIVITY RECOMMENDATIONS: Physical Therapy: * You will go to physical therapy three times each week for four to six weeks after your surgery in order to regain your knee range of motion and to retrain your knee to work properly. * It is just as important to make sure you are getting your knee perfectly straight as it is to regain your knee bend. * Taking a pain pill an hour before therapy can help you have a more productive and comfortable therapy session. Home Exercise: * You were shown a series of exercises (heel props, heel slides, etc.) in the hospital. Do these exercises three to four times each day including the exercises you were shown in physical therapy. Walking: * Get up and walk several times each day. For the first four weeks, try not to stand or walk for more than one hour at a time. If you do stand or walk for more than one hour, you will not hurt anything, but your knee and leg will likely swell. * As you feel comfortable, you may change from the walker or crutches to a cane and then to independent walking. MEDICATIONS: New Medicine: * You will likely be taking one or more of these medications: 1. MS Contin - A long-acting pain medication. Take 1 tablet twice a day for the first ten days to decrease your baseline level of pain. 2. Oxycodone - A quick and shorter-acting pain medication. Take one to two tablets every four to six hours to lessen your pain. 3. Aspirin - Thins your blood to lessen the chance of forming a blood clot. * The most common side effects of pain medicine and iron are nausea and constipation. If nausea or constipation is too much of a problem or if you have any questions about your new medicines or doses, call [facility] at . We will try to help you manage these issues. VERY IMPORTANT TO READ AND REVIEW" Pain: * The immediate post-operative period after knee replacement surgery is often quite painful. * You are given a prescription for pain medicine. You should take it, as directed, when you need it, especially before physical therapy and before going to bed. Pain that interferes with sleep is very common and can last several months. * You will likely need pain medicine for the first four to six weeks. It will not stop all of the pain. The pain will lessen and as you feel better, you may change to milder pain medicine such as Tylenol. * The most common side effects of pain medicine are nausea and constipation, so don't take more than you need. SPECIAL CARE INSTRUCTIONS: TEDs/Elastic Stockings: * The white elastic stockings help limit swelling and prevent blood clots from forming in your legs. The more you wear them, the more they work. * Wear them for six weeks after knee replacement surgery and four weeks after partial knee replacement. Prevention of Infection: * Take antibiotics one hour before any dental cleaning, dental work, urological procedure, gastrointestinal procedure or any invasive surgery in order to prevent your new joint from getting infected. * You may get the antibiotics from the doctor performing the procedure or you may call our office at before and we will call in a prescription to the pharmacy of your choice. Things to Watch For: * Drainage from the incision site that occurs more than one week after your surgery. * Severely increased knee/leg pain or swelling. * Increased redness at the incision site. * Fever above 102 degrees Fahrenheit. * Unusual chest pain or shortness of breath. * Unusual pain or burning with urination. Call [facility] at with any of the above problems or if you have any questions about your medicines or recovery. FOLLOW UP VISIT: Make an appointment to see your doctor for approximately two weeks after surgery for a progress check and staple removal by calling the office at . Current Hospital Diet Patient's current hospital diet: Regular Diet Discharge Diet Recommended Diet: Regular Diet Procedures Procedures Performed: Left Total Knee Arthroplasty Pending Studies Studies pending at discharge: no Medical Emergencies . Who to Call and When: Medical Emergencies: If at any time you feel your situation is an emergency, please call 1 immediately. . Non-Emergent Contact Non-Emergency issues call your: Surgeon . "Provider Documentation" section prepared by Nelson Chavez. . VTE Core Measure Inpt VTE Proph given/why not?: Other Anticoagulation, T.E.D. Stockings, SCD's
[2017-10-25] MEDS: ASCORBIC ACID 500 MG TAB PO SCH (22:31)
[2017-10-25] MEDS: SENNA 8.6 MG TAB PO SCH (22:31)
[2017-10-26] MEDS: CHECK SCOPOLAMINE PATCH PLACEMENT SCH ×2 (00:11→07:54)
[2017-10-26] MEDS: KETOROLAC TROMETHAMINE 15 MG/ML VIAL IV. SCH ×2 (03:56→09:25)
[2017-10-26] MEDS: ACETAMINOPHEN 500 MG TAB PO SCH (05:35)
[2017-10-26 05:39] VITALS: BP 114/77; PULSE 66; TEMP 36.7; O2SAT 92
[2017-10-26 07:36] VITALS: BP 131/76; PULSE 73; TEMP 36.7; O2SAT 100
[2017-10-26] MEDS: LORATADINE 10 MG TAB PO SCH (07:55)
[2017-10-26] MEDS: HYDROCHLOROTHIAZIDE 25 MG TAB PO SCH (07:55)
[2017-10-26] MEDS: FERROUS GLUCONATE 324 MG TAB PO SCH (07:55)
[2017-10-26] MEDS: PRAVASTATIN SOD 40 MG TAB PO SCH (07:56)
[2017-10-26] MEDS: PANTOprazole SOD 40 MG TAB PO SCH (07:56)
[2017-10-26] MEDS: MULTIVITAMIN TAB PO SCH (07:56)
[2017-10-26] MEDS: TAPENTADOL ER 50 MG TABCR PO SCH (07:56)
[2017-10-26 08:10] VITALS: O2SAT 100
[2017-10-26] MEDS: ASPIRIN 325 MG ECTAB PO SCH (09:23)
[2017-10-26] MEDS: METOPROLOL TARTRATE 50 MG TAB PO SCH (09:23)
[2017-10-26] MEDS: DOCUSATE SODIUM 100 MG CAP PO SCH (09:23)
[2017-10-26 10:31] VITALS: BP 131/76; PULSE 73; TEMP 36.7; O2SAT 100
--- NOTE | 2017-10-26 10:37 | PROGRESS NOTE ---
DATE: 10/26/2017 DATE: 10/26/2017 SUBJECTIVE: A 67-year-old white female postop day 2 from a left knee replacement. She is doing pretty well. Therapy is going reasonably well. Pain is controlled. No chest pain or shortness of breath. Not feeling dizzy or lightheaded. OBJECTIVE: VITAL SIGNS: Temperature is 36.7. Vital signs stable. PHYSICAL EXAMINATION: GENERAL: Reveals a healthy pleasant, middle-aged female. She is sitting up in her bedside chair and looks reasonably comfortable. EXTREMITIES: Examination of the left leg reveals the dressing to be in place. Just a little bit of bloody drainage. She can dorsiflex and plantarflex her foot appropriately. She is neurologically intact. ASSESSMENT: A 67-year-old female postop day 2 from left knee replacement, doing pretty well. Pain is reasonably well controlled. She is neurologically intact. PLAN: 1. DVT prophylaxis including thigh-high TEDs, SCDs, and aspirin twice a day. 2. PT/OT. Weightbearing as tolerated. Left total knee protocol. 3. Pain control. Will pretty well with current pain regimen. 4. Disposition. She is planning to be discharged to home and she is going to do outpatient therapy likely at local therapy.
[2017-10-26] MEDS: OXYCODONE HCL IR 5 MG TAB (IMMEDIATE RELEASE) PO PRN (10:59)
--- NOTE | 2017-10-28 16:01 | DISCHARGE SUMMARY ---
ADMITTING PHYSICIAN AND SURGEON: Dr. Chavez. ADMITTING DIAGNOSIS: Left knee degenerative joint disease. SURGERY PERFORMED: Left total knee arthroplasty. SECONDARY DIAGNOSES: Include hypertension, elevated cholesterol, obesity and arthritis. CONSULTS: None obtained. HISTORY AND PHYSICAL EXAMINATION: Well documented in the patient's chart. HOSPITAL COURSE: The patient was admitted on 10/24/2017 underwent total knee arthroplasty, tolerated the procedure well. There were no complications. She was transferred to the PACU postoperatively and later to the orthopedic floor for further care. She was given Ancef for antibiotic prophylaxis, CY stockings, SCDs and aspirin for DVT prophylaxis. Hemoglobin, hematocrit and vital signs were monitored during her hospital stay and remained stable. She developed some mild postoperative anemia, did not require any blood transfusions. There were no complications. By postoperative day 2, she was tolerating regular diet, pain was controlled with oral pain medicine. She was participating in physical therapy and had no signs or symptoms of deep vein thrombosis. On postop day 2, she was discharged home. She was given printed discharge instructions, including new prescriptions for extra strength Tylenol, aspirin 325 mg b.i.d., MS Contin and oxycodone. Continue her home medications, continue physical therapy, weightbearing as tolerated, CY stockings. Follow up in 10-12 days or sooner if there are any problems or concerns.
== END 2017-10-26 11:35 | disposition home or self-care (01) | DRG 470 ==
LOC: C.ACU 08:12 → C.3E 08:59 → ENRESERV 14:42
PROVIDERS: ADMIT Orthopaedic Surgery Sports Medicine; ATTEND Orthopaedic Surgery Sports Medicine
PROC: 0SRD0J9 Replacement of Left Knee Joint with Synthetic Substitute, Cemented, Open Approach (ICD-10-PCS; principal; 2017-10-24 11:15)
DX: M17.12 Unilateral primary osteoarthritis, left knee (principal); Z68.42 Body mass index [BMI] 45.0-49.9, adult; I10 Essential (primary) hypertension; E78.00 Pure hypercholesterolemia, unspecified; E66.01 Morbid (severe) obesity due to excess calories; Z79.899 Other long term (current) drug therapy

== ENCOUNTER 2018-02-16 10:34 | Inpatient (IN) | payer OTHER, MEDICARE ==
[2018-01-19 11:02] VITALS: BMI 46.0
[2018-02-06 12:20] LABS: BASO % 0.4 %; BASO ABS # 0.03 K/uL (0-0.2); EOS % 3.6 %; EOS ABS # 0.26 K/uL (0-0.5); HEMATOCRIT 39.2 % (37-47); HEMOGLOBIN 12.9 g/dL (12.0-16.0); IG# 0.01 K/uL (0.00-0.02); LYMPH % 29.9 %; LYMPH ABS # 2.17 K/uL (1.2-3.4); MEAN CELL VOLUME 87.7 fL (80-100); MEAN CORPUSCULAR HEMOGLOBIN 28.9 pg (25-34); MEAN CORPUSCULAR HGB CONC 32.9 g/dl (32-36); MEAN PLATELET VOLUME 10.4 fL (7.4-10.4); MONO % 5.2 %; MONO ABS # 0.38 K/uL (0.11-0.59); NEUT % 60.8 %; NEUT ABS # 4.41 K/uL (1.4-6.5); PLATELET COUNT 199 K/uL (130-400); RED CELL DISTRIBUTION WIDTH CV 15.3 % (11.5-14.5); RED CELL DISTRIBUTION WIDTH SD 49.1 fL (36.4-46.3); WHITE BLOOD COUNT 7.26 K/uL (4.8-10.8)
[2018-02-06 12:25] LABS: PTT PATIENT 22.7 SECONDS (21.0-31.0)
[2018-02-06 12:43] LABS: CALCIUM 9.3 mg/dl (8.5-10.1); CREATININE 1.06 mg/dl (0.60-1.20); POTASSIUM 3.7 mmol/L (3.5-5.1)
--- NOTE | 2018-02-12 20:12 | HISTORY & PHYSICAL EXAMINATION ---
DATE OF ADMISSION: 02/16/2018 CHIEF COMPLAINT: Right knee pain. HISTORY OF PRESENT ILLNESS: A 68-year-old female who presents for surgical treatment of her right knee. She has a long history of bilateral knee pain and discomfort. She has had both knees scoped by Dr. Ritter in the past back in 2007 and 2008. She has failed conservative care and underwent a left knee replacement about 4 months ago. She has done well from this. She has recovered from this and wants to have her right knee replaced. She continues to be a bit debilitated by right knee pain and discomfort. She has a limited walk intolerance. PAST MEDICAL HISTORY: 1. Hypertension. 2. Elevated cholesterol. 3. Obesity with a BMI of 47. 4. Arthritis. PAST SURGICAL HISTORY: Include: 1. Miscarriage. 2. D&C. 3. Ectopic x2. 4. Tubal ligation. 5. Bladder suspension. 6. Ganglion cyst removed from wrist. 7. Left knee scope in May 2008. 8. Right knee scope 2008. 9. Hysterectomy. 10. Bladder repair and ileostomy. 11. Ileostomy reversal. 12. Colonoscopy. 13. Bilateral carpal tunnel releases. 14. Cataract surgery. 15. L3-L4 fusion. 16. Left total knee replacement done 10/24/2017. ALLERGIES: LIBRIUM AND VALIUM. CURRENT MEDICINES: Include: 1. Metoprolol 50 mg twice a day. 2. Hydrochlorothiazide 25 mg. 3. Pravastatin 40 mg. 4. Diclofenac 75 mg twice a day. 5. Claritin 10 mg., 6. Multivitamin. 7. Vitamin C. 8. Probiotic. SOCIAL HISTORY: A 68-year-old female patient from [place] . She used to work at [employer] as well as at [employer] She is . Rare alcohol intake. FAMILY HISTORY: Significant for lung cancer and bone cancer. REVIEW OF SYSTEMS: Negative for diabetes, neurologic problems, vascular problems, bleeding disorders. No history of DVT or PE. No bleeding problems. PHYSICAL EXAMINATION: GENERAL: Reveals a pleasant, large, middle-aged female. HEENT: Benign. NECK: Supple, no lymphadenopathy. LUNGS: Clear to auscultation. HEART: Regular rate and rhythm. ABDOMEN: Soft, nontender, nondistended. EXTREMITIES: Grossly neurovascularly intact except as follows: Examination of the right knee reveals patient walks with a bit of a limp on her right side. She has a little bit of waddling gait. A large soft tissue envelope. Fairly neutral alignment to her knee. Range of motion about 5 degrees show full extension and 10 degrees of flexion. No instability. Examination of the left knee reveals well-healed incision. Range of motion 0-110. She is limited by her soft tissues. No instability. Good straight leg raise. X-RAYS: X-rays of the right knee reveal advanced right knee DJD. She has complete loss of her medial joint space. Little bit of tibial femoral subluxation. ASSESSMENT: A 68-year-old white female now about 4 months out from left knee replacement with advanced right knee degenerative joint disease. She has failed conservative treatment and would like to have her right knee replaced. PLAN: We will take her to the operating room and do a right total knee replacement. The risks and benefits of this procedure were explained to the patient to include but not limited to DVT, PE, , infection, neurologic injury, vascular injury, bleeding problem, pain, limited range of motion, stiffness, failure to relieve her symptoms, incomplete relief of symptoms, need for further surgery in future, fracture, leg length inequality, nerve palsy and need for revision surgery. The patient understands and desires to proceed. Informed consent was obtained. We will plan using a tibial stem due to her large size to try and limit her likelihood of a tibial loosening. We did talk to her about taking her metoprolol the morning of surgery. She stopped her diclofenac 2 weeks preop. As far as discharge plans, she is planning to be discharged home and do outpatient therapy at [facility] in [place].
[2018-02-16] VITALS (7 sets, daily range): BP systolic 102–127; BP diastolic 68–73; PULSE 63–74; TEMP 36.5–36.8; O2SAT 94–97; Ht 170.2 cm; Wt 135.8 kg
[~2018-02-16] VITALS: Ht 170.2 cm; Wt 135.8 kg
[2018-02-16] MEDS: CHECK SCOPOLAMINE PATCH PLACEMENT SCH ×3 (08:00→16:00)
[~2018-02-16 10:34] MED LIST changes: +AMLO-114 PO; +BNC/40 PO; -CEFAZOLIN 3000MG IV PUSH 15 ML IV SCH; +CEFAZOLIN 3000MG IV PUSH 22.5 ML IV SCH; +CITA20TA9 PO; +HYDROmorphone INJ 1 MG/ML SYR IV PRN; -LACTATED RINGER'S 1000ML 1,000 ML IV SCH; -LACTATED RINGER'S 1000ML 500 ML IV ONE; +LACTATED RINGER'S 1000ML 500 ML IV SCH; +PHENYLEPHRINE 100MCG/ML 5ML SYR IV PRN; +PROMETHAZINE HCL INJ 12.5 MG in SODIUM CHLORIDE 0.9% 50ML 50 ML IV PRN; -TRANEXAMIC ACID INJ 1,000 MG in SYRINGE 0 ML IV SCH; +TRANEXAMIC ACID INJ 1,000 MG x 1 Bag Preop IV SCH
[2018-02-16] MEDS ORDERED: LIDOCAINE HCL 2% 2 ML VIAL (20MG/ML) ONE (12:02)
[2018-02-16] MEDS ORDERED: FENTANYL CITRATE INJ 50 MCG/1 ML 2 ML VIAL ONE (12:02)
[2018-02-16] MEDS ORDERED: MIDAZOLAM HCL 1 MG/ML 2ML VIAL ONE ×2 (12:02→13:55)
[2018-02-16] MEDS ORDERED: PROPOFOL IV EMULSION 10 MG/ML 20 ML VIAL IV ONE ×3 (12:02→15:43)
[2018-02-16] MEDS ORDERED: BACITRACIN 50000 UNIT VIAL ONE (13:32)
[2018-02-16] MEDS ORDERED: SODIUM CHLORIDE 0.9% PF 50 ML VIAL ONE (13:32)
[2018-02-16] MEDS ORDERED: BUPIVACAINE LIPOSOME 1/3% 266 MG/20 ML VIAL INFIL ONE (13:32)
[2018-02-16] MEDS ORDERED: BUPIVACAINE 0.25% 30 ML VIAL ONE (13:33)
[2018-02-16] MEDS ORDERED: EpINEphrine INJ 1MG/ML AMP 1 MG/ML AMP ONE (13:33)
[2018-02-16] MEDS ORDERED: EpHEDrine SULFATE 50MG/5ML SYR ONE (14:37)
[2018-02-16] MEDS ORDERED: PHENYLEPHRINE 100MCG/ML 5ML SYR ONE (15:07)
--- NOTE | 2018-02-16 16:00 | [facility] Post Operative Brief Note ---
Immediate Operative Summary Operative Date Feb 16, 2018. Pre-Operative Diagnosis Advanced right knee degenerative joint disease Post-Operative Diagnosis Advanced right knee degenerative joint disease Procedure(s) Performed Right Total Knee Arthroplasty Surgeon Dr. Chavez [employer] Manager Surgeon(s) Peter Bailey PA-C Estimated Blood Loss 100ml Findings Consistent with Post-Op Diagnosis Specimens a. right knee bone and tissue Drains None Anesthesia Type MAC Spinal Regional Complication(s) none Disposition Accompanied Pt To Recover: no Disposition: Recovery Room / PACU
[2018-02-16] MEDS ORDERED: ALUMINUM/MAGNESIUM/SIMETH (MAALOX MAX) 30 ML UDC PO PRN (16:15)
[2018-02-16] MEDS ORDERED: ZOLPIDEM TARTRATE 5 MG TAB PO PRN (16:15)
[2018-02-16] MEDS ORDERED: METOCLOPRAMIDE HCL INJ 5 MG/ML 2 ML VIAL IV PRN (16:15)
[2018-02-16] MEDS ORDERED: MAGNESIUM HYDROXIDE SUSP 30 ML UDC PO PRN (16:15)
[2018-02-16] MEDS ORDERED: DiphenhydrAMINE HCL 50 MG/ML VIAL IV PRN (16:15)
[2018-02-16] MEDS ORDERED: ONDANSETRON INJ 2 MG/ML 2 ML VIAL IV PRN (16:15)
[2018-02-16] MEDS ORDERED: BISACODYL 10 MG SUPP PR PRN (16:15)
[2018-02-16] MEDS ORDERED: SILVER SULFADIAZINE 1% CR 50 GM JAR EXT PRN (16:15)
--- NOTE | 2018-02-16 16:36 | DIAGNOSTIC IMAGING REPORT ---
R KNEE 1 OR 2 VIEWS ROUTINE CLINICAL HISTORY: AP/LATERAL IN PACU RIGHT KNEE postoperative evaluation COMPARISON: 01/06/2016 DISCUSSION: Anatomic alignment posttotal right knee arthroplasty. Good contact between prosthetic and underlying bone. Expected soft tissue postoperative change IMPRESSION: Anatomic alignment posttotal right knee arthroplasty. The above report was generated using voice recognition software. It may contain grammatical, syntax or spelling errors. Electronically signed by: Finn Sims M.D. 02/16/2018 4:35 PM Dictated Date/Time: 02/16/2018 4:34 PM
--- NOTE | 2018-02-16 17:18 | Anesthesiology Progress Note ---
Anesthesia Post Op Note Date & Time Feb 16, 2018 at 17:18 Vital Signs Pain Intensity: 0 Vital Signs Past 12 Hours Date Time Temp Pulse Resp B/P (MAP) Pulse Ox O2 Delivery O2 Flow Rate FiO2 02/16/18 16:52 67 96 02/16/18 16:52 67 02/16/18 16:51 134/65 02/16/18 16:47 68 93 02/16/18 16:47 68 02/16/18 16:46 128/64 02/16/18 16:42 65 02/16/18 16:42 74 93 02/16/18 16:41 115/64 02/16/18 16:37 61 02/16/18 16:37 63 95 02/16/18 16:36 120/65 02/16/18 16:34 36.7 66 22 120/65 (77) 95 Nasal Cannula 2 02/16/18 16:33 64 02/16/18 16:33 64 95 02/16/18 16:32 65 02/16/18 16:32 63 94 02/16/18 16:31 121/67 02/16/18 16:27 65 96 02/16/18 16:27 64 02/16/18 16:26 63 02/16/18 16:26 76 129/67 98 02/16/18 16:21 62 02/16/18 16:21 66 110/68 97 02/16/18 16:16 65 22 122/64 98 02/16/18 16:16 65 22 02/16/18 16:11 65 20 88/62 99 02/16/18 16:11 65 20 02/16/18 16:08 109/61 02/16/18 16:06 36.1 63 16 109/61 (76) 98 Oxymask 10 02/16/18 11:16 36.5 71 71 123/73 94 Room Air Notes Mental Status: alert / awake / arousable, participated in evaluation Pt Amnestic to Procedure: Yes Nausea / Vomiting: adequately controlled Pain: adequately controlled Airway Patency, RR, SpO2: stable & adequate BP & HR: stable & adequate Hydration State: stable & adequate Neuraxial Anesthesia: was administered, sensory block is resolving Anesthetic Complications: no major complications apparent
[2018-02-16] MEDS: D5W AND 1/2NSS + 20MEQ KCL 1,000 ML IV SCH (18:16)
[2018-02-16] MEDS: HYDROmorphone INJ 0.5 MG/0.5 ML SYR IV PRN ×2 (18:17→22:26)
--- NOTE | 2018-02-16 18:23 | OPERATIVE REPORT ---
DATE OF OPERATION: 02/16/2018 SURGEON: Dr. Nelson Chavez. [employer] MAT INSPECTOR: ROSIBEL Valdez PREOPERATIVE DIAGNOSIS: Right knee degenerative joint disease. POSTOPERATIVE DIAGNOSIS: Same. PROCEDURE PERFORMED: Right cemented posterior stabilized total knee arthroplasty. COMPLICATIONS: None. ESTIMATED BLOOD LOSS: 100 mL. FLUID REPLACEMENT: 1600 mL crystalloid fluid replacement. TOURNIQUET TIME: 78 minutes at 350 mmHg. ANESTHESIA: Spinal with an adductor canal block. DRAINS: None. SPECIMENS: Right knee sent for pathology. OPERATIVE INDICATIONS: The patient is a 68-year-old female who has had a lifelong history of bilateral knee pain and discomfort. She underwent knee arthroscopy years ago with pretty minimal relief. She has been through extensive conservative treatment. X-rays revealed advanced DJD. She underwent a left knee replacement about 3-1/2 months ago and has done remarkably well from this. She elected to do a right total knee arthroplasty. Of note, we used a tibial stem on the previous knee. I elected not to do that at this time as the last time her canal was narrow and we had to ream out some of the canal and I though it placed the risk for fracture. Although her last knee worked out well and I thought the risk-benefit ratio was not in her favor. We elected to use an intramedullary guide and placed a standard tibial component. OPERATIVE FINDINGS: Operative findings revealed advanced right knee DJD. She had grade 4 [id number] disease in all 3 compartments. She had extensive disease. She had a large joint effusion. Very large soft tissue envelope. OPERATIVE IMPLANTS: Operative implants consists of: 1. A Biomet Vanguard size 60 right posterior stabilized femoral component. 2. A Biomet size 67 tibial tray. 3. A 12 mm posterior stabilized polyethylene insert. 4. A 31 x 8 all poly patella. OPERATIVE PROCEDURE: The patient taken to the operating room, identified and placed in the operating table in supine position. All contact areas were appropriately padded. IV antibiotics were provided by the anesthesia team. A spinal anesthetic was implemented in the holding area. Alberts catheter was placed in sterile fashion. The right thigh tourniquet was then placed. The right lower extremity was then prepped and draped in usual sterile fashion. The right leg was elevated and exsanguinated with Esmarch and tourniquet placed at 350 mmHg. An anterior approach of the right knee was then performed through a longitudinal incision centered over the patella. Sharp dissection was carried through the subcutaneous tissue down to the level of the extensor mechanism. Medial parapatellar arthrotomy incision was made. Some subperiosteal dissection was carried out medially. The fat pad was resected from beneath the patellar tendon. The lateral patellofemoral ligament was released. I just subluxated the patella laterally due to the large soft tissue envelope, but I could not cara it safely. The ACL and PCL were then released from the distal femur. The tibia subluxated anteriorly. The tibial eminence was then resected. I then entered the intramedullary canal with a sharp drill and the long IM gilda was placed down the tibial canal. A cutting guide was placed on the gilda to take 2 mm of bone off the most deficient aspect of the medial tibial plateau. Tibial tray was pinned and then the tibial cut was made. Tibia sized to a size 67. Attention was then drawn to the femur. The distal femur was entered with a sharp drill bit. Intramedullary canal was suctioned. A right 5 degree valgus cutting guide was placed. Distal femoral cutting block was pinned in place. Distal femoral cut was made to take an additional 3 mm of bone off the distal femur. The femur was then sized to a size 60. We did downsize this slightly. The AP cutting block was pinned parallel to the epicondylar axis, which was 4 degrees of external rotation. The anterior cut, anterior chamfer, posterior cut, posterior chamfer cuts were made. Box cutting guide was placed and adjusted slight lateral and box cut was made. The knee was flexed. The remnants of medial and lateral menisci were excised. The osteophytes were taken off the posterior aspect of the femur. Trial femoral component was placed. Tibial tray was pinned in maximum external rotation and drill and stem punch were used to create defect in proximal tibia for the tibial tray. The knee was then trialed and a 12 mm insert fit most appropriately. Attention was then drawn to the patella. The patella was cleaned of all soft tissues. Patella thickness measured 22 mm and was cut down to 14. It was sized to a size 31 patella. Lug holes were drilled for the 31 patella. Lateral osteophyte was removed. Patella button was placed. Knee was taken through range of motion, patella tracked nicely with no thumbs test. Attention was then drawn toward placement of permanent components. All trial components were removed. Bone plug was placed in the distal femur to limit blood loss. A double batch of Palacos G cement was mixed. A right size 60 posterior stabilized component, size 67 tibial tray, a 12 mm posterior stabilized polyethylene insert, and a 31 x 8 all poly patella then cemented in place. Knee was brought out into full extension until cement hardened. A final cement check was then performed. Pericapsular tissues were injected with 100 mL of a combination of 20 mL of Exparel, 30 mL of normal saline, 50 mL of 0.25% Marcaine with epinephrine. The patient did receive 1 gram of tranexamic acid. The tourniquet was then let down for a tourniquet time of 78 minutes. Hemostasis was assured with suction cautery. The wound was once again irrigated. Extensor mechanism was then closed with a combination of #1 PDS suture and #1 Vicryl suture in a [id number] fashion. Extensor mechanism was checked and found to be intact. Subcutaneous tissues were then closed with 2-0 Dexon suture in a buried interrupted fashion. Skin was closed skin rian. Leg was then cleaned, dried and a sterile dressing of Xeroform, 4 x 4, sterile cast padding and Vern bandage were applied. The patient was then transferred to the recovery room in stable condition. The patient tolerated the procedure with no complication. All needle and sponge counts were correct at the end of the operation. I attest to the content of the Intraoperative Record and any orders documented therein. Any exception s are noted below.
[2018-02-16] MEDS: KETOROLAC TROMETHAMINE 15 MG/ML VIAL IV. SCH (19:20)
[2018-02-16] MEDS: FERROUS GLUCONATE 324 MG TAB PO SCH (19:20)
[2018-02-16] MEDS: SENNA 8.6 MG TAB PO SCH (21:13)
[2018-02-16] MEDS: ASPIRIN 81 MG ECTAB PO SCH (21:13)
[2018-02-16] MEDS: METOPROLOL TARTRATE 50 MG TAB PO SCH (21:14)
[2018-02-16] MEDS: ASCORBIC ACID 500 MG TAB PO SCH (21:14)
[2018-02-16] MEDS: DOCUSATE SODIUM 100 MG CAP PO SCH (21:14)
[2018-02-16] MEDS: LACTOBACILLUS ACIDOPHILUS (FLORANEX) TAB PO SCH (21:14)
[2018-02-16] MEDS ORDERED: TRANEXAMIC ACID INJ 1,000 MG in SODIUM CHLORIDE 0.9% 100ML 100 ML IV SCH (22:00)
[2018-02-16] MEDS: ACETAMINOPHEN 500 MG TAB PO SCH (22:25)
[2018-02-16] MEDS: CEFAZOLIN IV 2,000 MG in SYRINGE 0 ML IV SCH (22:26)
[2018-02-17] MEDS: CHECK SCOPOLAMINE PATCH PLACEMENT SCH ×4 (00:11→23:27)
[2018-02-17] MEDS: KETOROLAC TROMETHAMINE 15 MG/ML VIAL IV. SCH ×5 (00:13→23:27)
[2018-02-17 06:13] LABS: HEMATOCRIT 35.2 % (37-47); HEMOGLOBIN 11.4 g/dL (12.0-16.0); MEAN CELL VOLUME 89.3 fL (80-100); MEAN CORPUSCULAR HEMOGLOBIN 28.9 pg (25-34); MEAN CORPUSCULAR HGB CONC 32.4 g/dl (32-36); PLATELET COUNT 165 K/uL (130-400); RED CELL DISTRIBUTION WIDTH CV 15.3 % (11.5-14.5); RED CELL DISTRIBUTION WIDTH SD 49.9 fL (36.4-46.3); WHITE BLOOD COUNT 7.99 K/uL (4.8-10.8)
[2018-02-17] MEDS: D5W AND 1/2NSS + 20MEQ KCL 1,000 ML IV SCH ×3 (06:20→12:35)
[2018-02-17] MEDS: CEFAZOLIN IV 2,000 MG in SYRINGE 0 ML IV SCH (06:20)
[2018-02-17] MEDS: ACETAMINOPHEN 500 MG TAB PO SCH ×3 (06:21→20:57)
[2018-02-17] MEDS: HYDROmorphone INJ 0.5 MG/0.5 ML SYR IV PRN ×3 (06:21→19:25)
[2018-02-17 06:57] LABS: CALCIUM 8.2 mg/dl (8.5-10.1); CREATININE 0.95 mg/dl (0.60-1.20); POTASSIUM 3.5 mmol/L (3.5-5.1)
[2018-02-17 07:15] VITALS: BP 104/61; PULSE 62; TEMP 36.7; O2SAT 92
--- NOTE | 2018-02-17 07:26 | PROGRESS NOTE ---
DATE: 02/16/2018 SUBJECTIVE: A 68-year-old white female postop day #1 from right knee replacement. She is doing well. Some moderate pain in her knee, but not unexpected for her. Denies any chest pain or shortness of breath. Not feeling dizzy or lightheaded. OBJECTIVE: VITAL SIGNS: Temperature 36.8. Vital signs stable. GENERAL: Reveals a pleasant, middle-aged female. She is lying in bed, looks comfortable. LUNGS: Clear to auscultation. HEART: Regular rate and rhythm. ABDOMEN: Soft, nontender, nondistended. EXTREMITIES: Grossly neurovascularly intact except as follows. Examination of the right lower extremity reveals the leg to be well aligned. Dressing is clean, dry and intact. She can dorsiflex and plantarflex her foot appropriately. She is neurologically intact. LABORATORY DATA: Hemoglobin 11.4. Hematocrit 35.2. Electrolytes are stable. ASSESSMENT: A 68-year-old white female postop day 1 from right knee replacement, doing pretty well. Pain is controlled. She is neurologically intact. PLAN: 1. DVT prophylaxis including thigh-high TEDs, SCDs, and aspirin twice a day. 2. PT/OT. Weight bear as tolerated. Right total knee protocol. 3. Pain control, doing well with current pain regimen. 4. Disposition: She is planning to be discharged to home and do outpatient therapy once adequately recovered.
[2018-02-17] MEDS: MULTIVITAMIN TAB PO SCH (08:37)
[2018-02-17] MEDS: DOCUSATE SODIUM 100 MG CAP PO SCH ×2 (08:37→20:49)
[2018-02-17] MEDS: FERROUS GLUCONATE 324 MG TAB PO SCH ×3 (08:37→18:06)
[2018-02-17] MEDS: METOPROLOL TARTRATE 50 MG TAB PO SCH ×2 (08:38→20:50)
[2018-02-17] MEDS: ASPIRIN 81 MG ECTAB PO SCH ×2 (08:38→20:50)
[2018-02-17] MEDS: OLMESARTAN MEDOXOMIL 40 MG TAB PO SCH (08:38)
[2018-02-17] MEDS: LORATADINE 10 MG TAB PO SCH (08:38)
[2018-02-17] MEDS: PANTOprazole SOD 40 MG TAB PO SCH (08:39)
[2018-02-17] MEDS: AMLODIPINE BESYLATE 5 MG TAB PO SCH (08:39)
[2018-02-17] MEDS: HYDROCHLOROTHIAZIDE 25 MG TAB PO SCH (08:39)
[2018-02-17] MEDS: PRAVASTATIN SOD 40 MG TAB PO SCH (08:40)
[2018-02-17] MEDS: HYDROmorphone HCL 2 MG TAB PO PRN ×2 (08:46→18:09)
[2018-02-17 08:47] VITALS: BP 120/67; PULSE 66
[2018-02-17] MEDS ORDERED: NURSING VERBAL MED ORDER ONE (09:00)
[2018-02-17] MEDS ORDERED: MULTIVITAMIN TAB PO SCH (09:00)
[2018-02-17] MEDS ORDERED: CITALOPRAM 20 MG TAB PO SCH ×2 (09:00→21:00)
[2018-02-17 11:05] VITALS: BP 105/61; PULSE 58; TEMP 36.7; O2SAT 94
[2018-02-17 15:00] VITALS: BP 119/77; PULSE 65; TEMP 36.7; O2SAT 96
[2018-02-17 20:47] VITALS: BP 115/74; PULSE 65
[2018-02-17] MEDS ORDERED: ASPEC81 PO (21:45)
[2018-02-17] MEDS ORDERED: ACET-24 PO (21:45)
[2018-02-17] MEDS ORDERED: TRAM-10 PO (21:45)
--- NOTE | 2018-02-17 21:48 | Discharge Instructions ---
Discharge Instructions Date of Service Feb 17, 2018. Admission Reason for Admission: Right Knee Degenerative Joint Disease Discharge Discharge Diagnosis / Problem: Right Knee Replacement Discharge Goals Goal(s): Decrease discomfort, Improve function, Increase independence, Improve disease control, Therapeutic intervention Activity Recommendations Activity Limitations: per Instructions/Follow-up section Weightbearing Status: Right weightbearing . Instructions / Follow-Up Instructions / Follow-Up ACTIVITY RECOMMENDATIONS: Physical Therapy: * You will go to physical therapy three times each week for four to six weeks after your surgery in order to regain your knee range of motion and to retrain your knee to work properly. * It is just as important to make sure you are getting your knee perfectly straight as it is to regain your knee bend. * Taking a pain pill an hour before therapy can help you have a more productive and comfortable therapy session. Home Exercise: * You were shown a series of exercises (heel props, heel slides, etc.) in the hospital. Do these exercises three to four times each day including the exercises you were shown in physical therapy. Walking: * Get up and walk several times each day. For the first four weeks, try not to stand or walk for more than one hour at a time. If you do stand or walk for more than one hour, you will not hurt anything, but your knee and leg will likely swell. * As you feel comfortable, you may change from the walker or crutches to a cane and then to independent walking. MEDICATIONS: New Medicine: * You will likely be taking one or more of these medications: 1. Tramadol - A quick and shorter-acting pain medication. Take one to two tablets every four to six hours to lessen your pain. 2. Aspirin - Thins your blood to lessen the chance of forming a blood clot. * The most common side effects of pain medicine and iron are nausea and constipation. If nausea or constipation is too much of a problem or if you have any questions about your new medicines or doses, call [facility] at . We will try to help you manage these issues. VERY IMPORTANT TO READ AND REVIEW" Pain: * The immediate post-operative period after knee replacement surgery is often quite painful. * You are given a prescription for pain medicine. You should take it, as directed, when you need it, especially before physical therapy and before going to bed. Pain that interferes with sleep is very common and can last several months. * You will likely need pain medicine for the first four to six weeks. It will not stop all of the pain. The pain will lessen and as you feel better, you may change to milder pain medicine such as Tylenol. * The most common side effects of pain medicine are nausea and constipation, so don't take more than you need. SPECIAL CARE INSTRUCTIONS: TEDs/Elastic Stockings: * The white elastic stockings help limit swelling and prevent blood clots from forming in your legs. The more you wear them, the more they work. * Wear them for six weeks after knee replacement surgery and four weeks after partial knee replacement. Prevention of Infection: * Take antibiotics one hour before any dental cleaning, dental work, urological procedure, gastrointestinal procedure or any invasive surgery in order to prevent your new joint from getting infected. * You may get the antibiotics from the doctor performing the procedure or you may call our office at before and we will call in a prescription to the pharmacy of your choice. Things to Watch For: * Drainage from the incision site that occurs more than one week after your surgery. * Severely increased knee/leg pain or swelling. * Increased redness at the incision site. * Fever above 102 degrees Fahrenheit. * Unusual chest pain or shortness of breath. * Unusual pain or burning with urination. Call [facility] at with any of the above problems or if you have any questions about your medicines or recovery. FOLLOW UP VISIT: Make an appointment to see your doctor for approximately two weeks after surgery for a progress check and staple removal by calling the office at . Current Hospital Diet Patient's current hospital diet: Regular Diet Discharge Diet Recommended Diet: Regular Diet Procedures Procedures Performed: Right Total Knee Arthroplasty Pending Studies Studies pending at discharge: no Medical Emergencies . Who to Call and When: Medical Emergencies: If at any time you feel your situation is an emergency, please call [phone] immediately. . Non-Emergent Contact Non-Emergency issues call your: Surgeon . "Provider Documentation" section prepared by Nelson Chavez. .
[2018-02-17] MEDS: LACTOBACILLUS ACIDOPHILUS (FLORANEX) TAB PO SCH (21:56)
[2018-02-17] MEDS: ASCORBIC ACID 500 MG TAB PO SCH (21:57)
[2018-02-17] MEDS: SENNA 8.6 MG TAB PO SCH (21:57)
[2018-02-17 23:51] VITALS: BP 105/68; PULSE 64; TEMP 36.8; O2SAT 92
[2018-02-18] MEDS: HYDROmorphone HCL 2 MG TAB PO PRN ×2 (05:50→10:47)
[2018-02-18] MEDS: ACETAMINOPHEN 500 MG TAB PO SCH (05:50)
[2018-02-18] MEDS: KETOROLAC TROMETHAMINE 15 MG/ML VIAL IV. SCH (05:54)
[2018-02-18 06:37] VITALS: BP 131/76; PULSE 63; TEMP 37.1; O2SAT 93
--- NOTE | 2018-02-18 07:51 | PROGRESS NOTE ---
DATE: 02/18/2018 SUBJECTIVE: A 68-year-old white female postop day 2 from right knee replacement. She is doing well. Pain is a bit better today. No chest pain or shortness of breath. Not feeling dizzy or lightheaded. OBJECTIVE: VITAL SIGNS: Temperature 37.1. Vital signs stable. GENERAL: Reveals a pleasant middle-aged female sitting up in her bedside chair and looks pretty comfortable. EXTREMITIES: Examination of the right leg reveals the dressing to be clean, dry and intact. Leg is well aligned. She can dorsiflex and plantarflex her foot appropriately. She is neurologically intact. ASSESSMENT: A 68-year-old white female postop day 2 from right knee replacement, doing pretty well. Pain is controlled. She is neurologically intact. PLAN: 1. DVT prophylaxis including thigh TEDs, SCDs, and aspirin twice a day. 2. PT/OT. Weight bear as tolerated. Right total knee protocol. 3. Pain control, doing well with current pain regimen. 4. Disposition: She is planning to be discharged home and do outpatient therapy.
[2018-02-18] MEDS: HYDROCHLOROTHIAZIDE 25 MG TAB PO SCH (08:22)
[2018-02-18] MEDS: CHECK SCOPOLAMINE PATCH PLACEMENT SCH (08:22)
[2018-02-18] MEDS: AMLODIPINE BESYLATE 5 MG TAB PO SCH (08:22)
[2018-02-18] MEDS: PANTOprazole SOD 40 MG TAB PO SCH (08:23)
[2018-02-18] MEDS: LORATADINE 10 MG TAB PO SCH (08:23)
[2018-02-18] MEDS: MULTIVITAMIN TAB PO SCH (08:23)
[2018-02-18] MEDS: OLMESARTAN MEDOXOMIL 40 MG TAB PO SCH (08:24)
[2018-02-18] MEDS: METOPROLOL TARTRATE 50 MG TAB PO SCH (08:24)
[2018-02-18] MEDS: DOCUSATE SODIUM 100 MG CAP PO SCH (08:24)
[2018-02-18] MEDS: PRAVASTATIN SOD 40 MG TAB PO SCH (08:25)
[2018-02-18] MEDS: ASPIRIN 81 MG ECTAB PO SCH (08:25)
[2018-02-18] MEDS: FERROUS GLUCONATE 324 MG TAB PO SCH (08:27)
[2018-02-18 09:20] VITALS: BP 131/76; PULSE 63; TEMP 37.1; O2SAT 93
[2018-02-18] MEDS ORDERED: HYDR2TAB48 PO (10:03)
== END 2018-02-18 11:04 | disposition home or self-care (01) | DRG 470 ==
LOC: C.ACU 10:34 → C.3E 10:55 → ENRESERV 16:29
PROVIDERS: ADMIT Orthopaedic Surgery Sports Medicine; ATTEND Orthopaedic Surgery Sports Medicine
PROC: 0SRT0J9 Replacement of Right Knee Joint, Femoral Surface with Synthetic Substitute, Cemented, Open Approach (ICD-10-PCS; principal; 2018-02-16 13:15)
DX: M17.11 Unilateral primary osteoarthritis, right knee (principal); Z68.42 Body mass index [BMI] 45.0-49.9, adult; I10 Essential (primary) hypertension; E66.9 Obesity, unspecified; Z98.51 Tubal ligation status; Z90.710 Acquired absence of both cervix and uterus; Z96.652 Presence of left artificial knee joint; Z98.49 Cataract extraction status, unspecified eye; Z80.1 Family history of malignant neoplasm of trachea, bronchus and lung; Z80.8 Family history of malignant neoplasm of other organs or systems

== ENCOUNTER 2020-01-23 10:35 | Inpatient (IN) ==
--- NOTE | 2020-01-09 14:56 | PAT Medication Instructions ---
Medication Instructions Date of Service January 09, 2020 Home Medications Multi Vitamin 1 tab PO QAM amlodipine [Norvasc] 10 mg PO QAM ascorbic acid (vitamin C) 500 mg PO QAM citalopram [Celexa] 20 mg PO QAM diclofenac sodium [Voltaren-XR] 100 mg PO QAM hydrochlorothiazide 25 mg PO QAM loratadine [Claritin] 10 mg PO QAM metoprolol tartrate 50 mg PO BID olmesartan [Benicar] 20 mg PO QAM pravastatin 40 mg PO QAM ASK your surgeon for instructions diclofenac sodium [Voltaren-XR] 100 mg PO QAM DO NOT take the morning of surgery Multi Vitamin 1 tab PO QAM ascorbic acid (vitamin C) 500 mg PO QAM hydrochlorothiazide 25 mg PO QAM loratadine [Claritin] 10 mg PO QAM olmesartan [Benicar] 20 mg PO QAM Take morning of surgery With a small sip of water, OTHERWISE NOTHING TO EAT OR DRINK AFTER MIDNIGHT: amlodipine [Norvasc] 10 mg PO QAM citalopram [Celexa] 20 mg PO QAM metoprolol tartrate 50 mg PO BID pravastatin 40 mg PO QAM Take evening before surgery metoprolol tartrate 50 mg PO BID Other Notes If you have any questions please call us at [phone] or [phone] or [phone] or [phone]
--- NOTE | 2020-01-10 14:40 | Anesthesiology Consultation ---
Date of Service January 10, 2020 Assessment & Plan (1) Encounter for pre-operative examination: Chart Review Chart Review: Acceptable Risk for Surgery and Patient seen in Pre Admission Testing Teaching & Discussion Instructed NPO after midnight before surgery, except medications with 15 cc of water. Medication instructions provided according to the PAT guidelines. History Surgery Operation Date: 01/23/20 13:10 Proposed Procedures p L2-L5 Decompression and Fusion, L3-L4 Hardware Removal, Spinal Cord Monitoring - Jaswinder Cormier, Height/Weight Height: 5 ft 5 in Weight: 140.7 kg Allergies Allergy/AdvReac Type Severity Reaction Status Date / Time diazepam Allergy Intermediate VERY HYPER Verified 01/08/20 08:46 chlordiazepoxide Allergy Mild VERY HYPER Verified 01/08/20 08:46 Medications Home Medications Medication Instructions Recorded Confirmed Last Taken Multi Vitamin 1 tab PO QAM 03/27/19 01/08/20 03/28/19 07:30 amlodipine [Norvasc] 10 mg PO QPM 03/27/19 01/10/20 03/28/19 21:00 ascorbic acid (vitamin C) 500 mg PO QPM 03/27/19 01/10/20 03/28/19 21:00 citalopram [Celexa] 20 mg PO QPM 03/27/19 01/10/20 03/28/19 21:00 hydrochlorothiazide 25 mg PO QAM 03/27/19 01/08/20 03/28/19 07:30 loratadine [Claritin] 10 mg PO QAM 03/27/19 01/08/20 03/28/19 07:30 metoprolol tartrate 50 mg PO BID 03/27/19 01/08/20 03/29/19 07:30 pravastatin 40 mg PO QAM 03/27/19 01/08/20 03/28/19 07:30 diclofenac sodium 75 mg PO BID 01/10/20 01/10/20 Unknown losartan 100 mg PO QPM 01/10/20 01/10/20 Unknown multivitamin 1 tab PO QAM 01/10/20 01/10/20 Unknown Past Medical History Medical History (Updated 01/10/20 @ 14:44 by Jay Villafana) Arthritis (Acute) History of ectopic (Acute) HTN (hypertension) (Acute) Hyperlipemia Morbid obesity Exercise / Class Metabolic Activity III < 4 Walking/Shop/Light housework (+SOB with ambulation over longer distances, no chest pain.) Past Surgical History Surgical History History of bladder suspension procedure (Acute) History of carpal tunnel release (Acute) RIGHT AND LEFT History of cataract extraction (Acute) RIGHT AND LEFT History of colonoscopy (Acute) History of dilatation and curettage (Acute) History of ileostomy (Acute) FROM HYSTERECTOMY SURGERY AND KNICKED BOWEL History of left knee replacement (Acute) History of lumbar fusion (Acute) History of reversal of ileostomy (Acute) History of surgical removal of ganglion cyst (Acute) History of total right knee replacement History of tubal ligation (Acute) Hx of total hysterectomy with removal of both tubes and ovaries Past Anesthesia History No Hx of Anesthesia Complications and No Family Hx of Anesthesia Complications History of PONV No Hx of PONV and No Hx of Motion Sickness Social History Smoking Status: Never smoker Do You Dip or Chew Tobacco: No Hx Alcohol Use: No Hx Substance Use: No substance use type: does not use Review of Systems Pt denies any recent chest pain, shortness of breath above baseline, palpitations, cough, fever or URI. Physical Exam Constitutional + morbidly obese ENMT Mouth: + dentures (partial upper); no dental restorations, no chipped teeth and no loose teeth Thyromental Distance: > or= 3.5 Finger Breadths (3.5) Mallampati Class: III Neck normal visual inspection and + thick neck; neck extension not limited Respiratory normal respiratory effort Auscultation: lungs clear to auscultation bilaterally Cardiovascular Rate/Rhythm: regular rate and regular rhythm Heart Sounds: no murmur Testing Laboratory Results 01/10/20 14:58 01/10/20 14:58 PT 10.4 Seconds (9.0-12.0) 01/10/20 14:58 INR 1.0 (0.9-1.1) 01/10/20 14:58 APTT 24.1 Seconds (21.0-31.0) 01/10/20 14:58 Urine Color Yellow 01/10/20 Unknown Urine Appearance Clear (Clear) 01/10/20 Unknown Urine pH 5.0 (4.5-7.5) 01/10/20 Unknown Ur Specific [place] 1.023 (1.000-1.030) 01/10/20 Unknown Urine Protein Negative (Negative) 01/10/20 Unknown Urine Glucose (UA) Negative (Negative) 01/10/20 Unknown Urine Ketones Negative (Negative) 01/10/20 Unknown Urine Nitrite Negative (Negative) 01/10/20 Unknown Ur Leukocyte Esterase Trace (Negative) H 01/10/20 Unknown Urine WBC (Auto) 1-5 /hpf (0-5) 01/10/20 Unknown Urine RBC (Auto) 0-4 /hpf (0-4) 01/10/20 Unknown U Hyaline Cast (Auto) 0 /lpf (0-5) 01/10/20 Unknown U Epithel Cells (Auto) >30 /lpf (0-5) H 01/10/20 Unknown Urine Bacteria (Auto) Negative (Negative) 01/10/20 Unknown Blood Type A Negative 01/10/20 14:58 Antibody Screen NEGATIVE 01/10/20 14:58 Electrocardiogram Date: 01/10/20 Sinus rhythm at 69 bpm with marked sinus arrhythmia. Otherwise normal EKG. Compared with EKG of 03/16/2017, no significant changes found. Chest X-Ray Date: 01/10/20 Findings: + NAD and + cardiomegaly
--- NOTE | 2020-01-10 14:51 | PAT Medication Instructions ---
Medication Instructions Date of Service January 10, 2020 Home Medications Multi Vitamin 1 tab PO QAM amlodipine [Norvasc] 10 mg PO QAM ascorbic acid (vitamin C) 500 mg PO QAM citalopram [Celexa] 20 mg PO QAM hydrochlorothiazide 25 mg PO QAM loratadine [Claritin] 10 mg PO QAM metoprolol tartrate 50 mg PO BID pravastatin 40 mg PO QAM diclofenac sodium 75 mg PO BID losartan 100 mg PO QPM multivitamin 1 tab PO QAM ASK your surgeon for instructions diclofenac sodium 75 mg PO BID DO NOT take the morning of surgery hydrochlorothiazide 25 mg PO QAM loratadine [Claritin] 10 mg PO QAM multivitamin 1 tab PO QAM Take morning of surgery With a small sip of water, OTHERWISE NOTHING TO EAT OR DRINK AFTER MIDNIGHT: amlodipine [Norvasc] 10 mg PO QAM metoprolol tartrate 50 mg PO BID pravastatin 40 mg PO QAM Take evening before surgery metoprolol tartrate 50 mg PO BID diclofenac sodium 75 mg PO BID losartan 100 mg PO QPM citalopram [Celexa] 20 mg PO QPM ascorbic acid (vitamin C) 500 mg PO QPM Other Notes If you have any questions please call us at [phone] or [phone] or [phone] or [phone]
[2020-01-10 15:24] LABS: Basophils # (auto) 0.04 K/uL (0-0.2); Basophils % (auto) 0.7 %; Eosinophils # (auto) 0.39 K/uL (0-0.5); Eosinophils % (auto) 6.4 %; Hematocrit (blood only) 37.8 % (37-47); Hemoglobin 12.2 g/dL (12.0-16.0); Immature Granulocytes # (auto) 0.01 K/uL (0.00-0.02); Immature Granulocytes % (auto) 0.2 %; Mean Corpuscular Hemoglobin 30.1 pg (25-34); Mean Corpuscular Hgb Conc 32.3 g/dL (32-36); Mean Corpuscular Volume 93.3 fL (80-100); Mean Platelet Volume 9.6 fL (7.4-10.4); Monocytes # (auto) 0.67 K/uL (0.11-0.59); Monocytes % (auto) 10.9 %; Neutrophils # (auto) 3.12 K/uL (1.4-6.5); Neutrophils % (auto) 50.8 %; Platelet Count 198 K/uL (130-400); RDW Coefficient of Variation 14.4 % (11.5-14.5); Red Blood Count 4.05 M/uL (4.2-5.4); White Blood Count 6.13 K/uL (4.8-10.8)
[2020-01-10 15:26] LABS: Appearance Urine Clear (Clear); Bacteria Urine Automated Negative (Negative); Bilirubin Urine Negative (Negative); Blood Urine Negative (Negative); Cast Urine Automated 0 /lpf (0-5); Color Urine Yellow; Epithelial Cell Urine Auto >30 /lpf (0-5); Glucose Urine UA Negative (Negative); Ketones Urine Negative (Negative); Leukocyte Esterase Urine Trace (Negative); Nitrite Urine Negative (Negative); Protein Urine Negative (Negative); RBC Urine Automated 0-4 /hpf (0-4); Specific Gravity Urine 1.023 (1.000-1.030); Urobilinogen Urine Negative (Negative)
[2020-01-10 15:30] LABS: BUN Creatinine Ratio 27.3 (10-20); Creatinine Clr Calc Pharmacy 88.6 ml/min; Est GFR (African American) 78.8; Potassium 3.7 mmol/L (3.5-5.1)
[2020-01-10 15:36] LABS: Partial Thromboplastin Ratio 0.9; Partial Thromboplastin Time 24.1 Seconds (21.0-31.0); Prothrombin Time 10.4 Seconds (9.0-12.0)
--- NOTE | 2020-01-10 16:01 | XRay Report ---
TWO VIEW CHEST CLINICAL HISTORY: Preoperative examination. FINDINGS: PA and lateral chest radiographs are compared to study dated 01/22/2019 and correlated with chest CT dated 02/20/2019. The heart is enlarged. The pulmonary vasculature is noncongested. Chronic i nterstitial thickening is similar to previous. No airspace consolidation or pleural effusion is ident ified. There is no pneumothorax. The skeletal structures are osteopenic. The bony thorax appears inta ct. Degenerative change is noted throughout the thoracic spine. IMPRESSION: Cardiomegaly with no active disease in the chest. ACT 112: Negative or not required by law. Electronically signed by: Yuri Sol M.D. 01/10/2020 3:59 PM
--- NOTE | 2020-01-10 16:12 | Electrocardiogram Report ---
Test Reason : Blood Pressure : / mmHG Vent. Rate : 069 BPM Atrial Rate : 069 BPM P-R Int : 176 ms QRS Dur : 108 ms QT Int : 444 ms P-R-T Axes : 046 018 038 degrees QTc Int : 475 ms Sinus rhythm with marked sinus arrhythmia Otherwise normal ECG When compared with ECG of 16-MAR-2017 14:44, No significant change was found Confirmed by Mani Herr ([id number]) on 01/10/2020 4:12:46 PM Referred By: Jaswinder Cormier Confirmed By:Mani Herr
[~2020-01-23 10:35] MED LIST changes: -AMLO-114 PO; -ASCA500 PO; -ATROPINE SULFATE 0.1 MG/ML 5ML SYR IV PRN; -BNC/40 PO; -BUPIVACAINE 0.25% 30 ML VIAL ONE; -BUPIVACAINE 0.5 % 5 MG/1 ML PF 10ML VIAL ONE; -BUPIVACAINE LIPOSOME 266 MG, BUPIVACAINE/EPINEPHRINE INJ 50 ML, SODIUM CHLORIDE 0.9% PF... INFIL SCH; +CEFAZOLIN 3000MG 72.5 ML IV SCH; -CEFAZOLIN 3000MG IV PUSH 22.5 ML IV SCH; -CITA20TA9 PO; -CLR10 PO; +CeleBREX 200 MG CAP PO SCH; -DICL-201 PO; -EpHEDrine SULFATE INJ 50 MG/ML AMP IV PRN; -FAMOTIDINE 20 MG TAB PO SCH; -FENTANYL CITRATE INJ 50 MCG/1 ML 2 ML VIAL IV PRN; -HYDR25TA4 PO; -HYDROmorphone INJ 1 MG/ML SYR IV PRN; -LACTATED RINGER'S 1000ML 500 ML IV SCH; -LACTATED RINGER'S 1000ML IV SCH; +LR 15ML/HR IV SCH; -METO50TA17 PO; -METOCLOPRAMIDE HCL 10 MG TAB PO SCH; -MISCCAP80 PO; -MULTTAB58 PO; -ONDANSETRON INJ 2 MG/ML 2 ML VIAL IV PRN; -PHENYLEPHRINE 100MCG/ML 5ML SYR IV PRN; -PROMETHAZINE HCL INJ 12.5 MG in SODIUM CHLORIDE 0.9% 50ML 50 ML IV PRN; -PRVC/40 PO; -SCOPOLAMINE 1.5 MG TDSY TD SCH; -TRANEXAMIC ACID INJ 1,000 MG x 1 Bag Preop IV SCH
[2020-01-23] MEDS ORDERED: NEOSTIGMINE METHYLSULFATE 1 MG/ML 10ML VIAL ONE (11:38)
[2020-01-23] MEDS ORDERED: ONDANSETRON INJ 2 MG/ML 2 ML VIAL ONE (11:38)
[2020-01-23] MEDS ORDERED: ROCURONIUM BROMIDE 10 MG/ML 5 ML VIAL ONE ×2 (11:38→14:57)
[2020-01-23] MEDS ORDERED: MIDAZOLAM HCL 1 MG/ML 2ML VIAL ONE (11:38)
[2020-01-23] MEDS ORDERED: DEXAMETHASONE SOD INJ 4 MG/ML VIAL ONE (11:38)
[2020-01-23] MEDS ORDERED: PROPOFOL IV EMULSION 10 MG/ML 20 ML VIAL IV ONE (11:38)
[2020-01-23] MEDS ORDERED: LIDOCAINE HCL 2% 2 ML VIAL/AMP(20MG/ML) INFIL ONE (11:38)
[2020-01-23] MEDS ORDERED: HYDROmorphone INJ 2 MG/ML SYR/VIAL ONE (11:38)
[2020-01-23] MEDS ORDERED: GLYCOPYRROLATE 0.2 MG/ML VIAL ONE (11:38)
[2020-01-23] MEDS ORDERED: fentaNYL citrate 100 MCG/2 ML VIAL ONE (11:38)
[2020-01-23] MEDS ORDERED: fentaNYL citrate 100 MCG/2 ML VIAL IV PRN (12:06)
[2020-01-23] MEDS ORDERED: HYDROmorphone INJ 2 MG/ML SYR/VIAL IV PRN (12:06)
[2020-01-23] MEDS ORDERED: ATROPINE SULFATE 0.1 MG/ML 10ML SYR IV PRN (12:06)
[2020-01-23] MEDS ORDERED: PROMETHAZINE HCL 12.5 MG in SODIUM CHLORIDE 0.9% 50 ML IV PRN ×2 (12:06→17:26)
[2020-01-23] MEDS ORDERED: ONDANSETRON INJ 2 MG/ML 2 ML VIAL IV PRN ×2 (12:06→17:26)
[2020-01-23] MEDS ORDERED: ePHEDrine sulfate 50 MG/ML AMP IV PRN (12:06)
--- NOTE | 2020-01-23 12:21 | History & Physical Bridge Note ---
Date of Service January 23, 2020 History & Physical Bridge Note I have examined the patient, reviewed the History & Physical and in the interval since the performance of the History & Physical I have noted the following changes of clinical significance: no changes noted
--- NOTE | 2020-01-23 12:22 | History & Physical Report ---
Date of Service January 23, 2020 Assessment & Plan (1) Lumbar stenosis with neurogenic claudication: L2-L5 decompression fusion, L3-4 hardware removal Present on Admission?: Yes History of Present Illness Chief Complaint: Back and bilateral leg pain Primary Care Provider: Carlos Knapp This is a 62-year-old female well-known to me that presents with worsening back and leg pain after failing extensive course of nonoperative care is here for surgical invention. Allergies Allergy/AdvReac Type Severity Reaction Status Date / Time diazepam Allergy Intermediate VERY HYPER Verified 01/23/20 11:09 chlordiazepoxide Allergy Mild VERY HYPER Verified 01/23/20 11:09 Home Medications Home Medications Medication Instructions Recorded Confirmed Type amlodipine [Norvasc] 10 mg PO QPM 03/27/19 01/10/20 History ascorbic acid (vitamin C) 500 mg PO QPM 03/27/19 01/23/20 History citalopram [Celexa] 20 mg PO QPM 03/27/19 01/23/20 History hydrochlorothiazide 25 mg PO QAM 03/27/19 01/23/20 History loratadine [Claritin] 10 mg PO QAM 03/27/19 01/23/20 History metoprolol tartrate 50 mg PO BID 03/27/19 01/08/20 History pravastatin 40 mg PO QAM 03/27/19 01/23/20 History diclofenac sodium 75 mg PO BID 01/10/20 01/23/20 History losartan 100 mg PO QPM 01/10/20 01/23/20 History multivitamin 1 tab PO QAM 01/10/20 01/23/20 History Past Med/Surg History Surgical History History of bladder suspension procedure (Acute) History of carpal tunnel release (Acute) RIGHT AND LEFT History of cataract extraction (Acute) RIGHT AND LEFT History of colonoscopy (Acute) History of dilatation and curettage (Acute) History of ileostomy (Acute) FROM HYSTERECTOMY SURGERY AND KNICKED BOWEL History of left knee replacement (Acute) History of lumbar fusion (Acute) History of reversal of ileostomy (Acute) History of surgical removal of ganglion cyst (Acute) History of total right knee replacement History of tubal ligation (Acute) Hx of total hysterectomy with removal of both tubes and ovaries Social History Preferred Language: Armenian Communication Ability: Effective 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 Results & Data Vital Signs (Past 12 Hours) Vital Signs Temp Pulse Resp BP Pulse Ox 01/23/20 11:16 36.8 C 72 20 128/82 92
[2020-01-23] MEDS ORDERED: BUPIVACAINE/EPINEPHRINE 0.5% MPF 1:200,000 10 ML VIAL ONE (12:53)
[2020-01-23] MEDS ORDERED: BACITRACIN INJ 50,000 UNIT VIAL ONE (12:53)
[2020-01-23] MEDS ORDERED: FLOSEAL HEMOSTATIC MATRIX 10ML TOP ONE (14:03)
[2020-01-23] MEDS ORDERED: PHENYLEPHRINE 100MCG/ML 5ML SYR ONE (14:12)
[2020-01-23] MEDS ORDERED: ePHEDrine sulfate 50 MG/ML AMP ONE (14:56)
--- NOTE | 2020-01-23 15:48 | Operative Report ---
Post Operative Report Pre & Post Diagnosis Operation Date: 01/23/20 12:55 Pre-Op Diagnosis: Lumbar stenosis with neurogenic claudication Spondylolisthesis L4-5 Morbid obesity Post-Op Diagnosis: Same I identified the patient and participated in the time-out.: Yes Procedure Operation Date: 01/23/20 12:55 Actual Procedures #1 removal of posterior instrumentation L3-L4. #2 exploration of fusion L3-L4. #3 lumbar decompression with bilateral medial facetectomies foraminotomies L2-3 L4-5. #4 posterior spinal fusion L2-L5. #5 placed posterior instrumentation L2-L5. #6 interbody fusion L2-3 and L4-5. #7 placement of peek cage 12 x 26 mm at L2-3 and 13 x 26 mm at L4-5. #8 placement of locally harvested morselized autograft in the posterior lateral gutters. #9 placement infuse collagen sponge, master graft in the posterior gutters and ostial amp interbody space. Surgeon Jaswinder Cormier, Commercial Baking Teacher Queenie Stokes Estimated Blood Loss 800 Findings See Below The patient is 5 foot 5 inches tall weighing over 138 kg with a BMI in excess of 50. The patient's body habitus did add significant technical difficulty requiring her deepest retractors and longus instruments in order to perform her procedure. This did add at least 50% increase to operative time. Specimens None Indications This is a 70-year-old female known to me the presents with above-mentioned diagnosis after failed extensive course of nonoperative care she is here for for the above-mentioned procedure. Description of Procedure Patient was met with identified informed consent obtained. Patient was then taken to the operative suite underwent intubation placed in a prone position the Isac table on top of the Nahun frame. All bony prominences well-padded eyes inspected to ensure no external pressure placed upon the. This point the lumbar spine was prepped and draped in normal sterile fashion. Sharp dissection with the assistance of Bovie cautery was performed down to and exposing the lamina and transverse processes of L2 and the instrumentation L3-L4 and the lamina and transverse process of L5. I then proceeded to remove the hardware at L3 and L4 bilaterally exploring the fusion mass noting it to be intact. Then performed complete laminectomy of L4 and L2 from a caudal cephalad fashion including bilateral medial facetectomies foraminotomies addressing severe stenosis. Pedicle screws were then placed in L2 L3-L4-L5 bilaterally with assistance of fluoroscopy the proper sized gilda placed. By way of a trans-foraminal approach on the right a complete discectomy of L4-5 was performed endplates curetted to subcortical bleeding bone and the 13 x 26 mm peek cage filled with osteo-bone graft tapped in position. Then proceeded to L2-[address] of a transforaminal approach on the right complete discectomy was performed endplates curetted to subcortical bleeding bone and a 12 x 26 mm peek cage filled with osteo-bone graft tapped in position. The rods were then locked into final position bilaterally. The transverse processes of L2 L3-L4-L5 were then burred to subcortical bleeding bone. Infuse collagen sponge master graft local autograft was placed in the posterior lateral gutters. 15 round FABIANA drain inserted. The incision was then closed with 1 Vicryl in the fascia 2-0 Vicryl subcutaneously and 4 Monocryl for final skin closure. Steri-Strip sterile dressings placed. Patient will continue PACU stable disc. Please note spinal cord monitoring was utilized that the procedure no changes noted. Lastly Queenie Stokes was present at the entire procedure involved the patient positioning complex portions of the surgery and final skin closure. I attest to the content of the Intraoperative Record and any orders documented therein. Any exceptions are noted below.
--- NOTE | 2020-01-23 15:54 | Fluoroscopy Report ---
FL lumbar spine 2-3V CLINICAL HISTORY: L2-L5 DECOMP/FUSION, HARDWARE REMOVAL COMPARISON STUDY: MRI dated 08/11/2019 FLUOROSCOPY TIME: 21 seconds. NUMBER OF FLUOROSCOPIC IMAGES: 4 FINDINGS: 4 intraoperative fluoroscopic spot images reveal postsurgical changes of discectomies and i nterbody fusions at the L2-3, L3-4, and L4-5 levels. There are L2-L5 pedicle screws and adjoining spi nal rods IMPRESSION: Intraoperative fluoroscopic spot images demonstrating postsurgical changes of an L2-5 sp inal decompression and fusion ACT 112: Negative or not required by law. Electronically signed by: Juan Manuel Sidhu M.D. 01/23/2020 3:53 PM
--- NOTE | 2020-01-23 16:58 | Anesthesiology Progress Note ---
Date of Service January 23, 2020 Anesthesia Post Procedure Vital Signs Vital Signs: Temp Pulse Pulse Resp BP Pulse Ox 01/23/20 16:45 98.4 F 76 17 127/76 93 01/23/20 16:35 72 20 144/83 H 96 01/23/20 16:25 78 16 135/64 93 01/23/20 16:17 97.7 F 72 16 147/77 H 94 01/23/20 11:16 98.2 F 72 20 128/82 92 Pain Intensity Bilateral Lower Back: Pain Intensity: 0 Transfer of Care Handoff Completed per policy Notes Mental Status: alert / awake / arousable and participated in evaluation Patient Amnestic to Procedure: Yes Nausea / Vomiting: adequately controlled Pain: adequately controlled Airway Patency, RR, SpO2: stable & adequate BP & HR: stable & adequate Hydration State: stable & adequate Anesthetic Complications: no major complications apparent and Pt Satisfied with anesthetic care
[2020-01-23] MEDS ORDERED: ACETAMINOPHEN 1,000 MG/100 ML VIAL IV PRN (17:26)
[2020-01-23] MEDS ORDERED: DO NOT ADMINISTER PNEUMOCOCCAL VACCINE PRN (17:26)
[2020-01-23] MEDS ORDERED: METOCLOPRAMIDE HCL INJ 5 MG/ML 2 ML VIAL IV PRN (17:26)
[2020-01-23] MEDS ORDERED: MAGNESIUM HYDROXIDE SUSP 30 ML UDC PO PRN (17:26)
[2020-01-23] MEDS ORDERED: LORazepam 0.5 MG/1 ML VIAL IV PRN (17:26)
[2020-01-23] MEDS ORDERED: ALUMINUM/MAGNESIUM SUSP 30 ML UDC PO PRN (17:26)
[2020-01-23] MEDS ORDERED: bisacodyL 10 MG SUPP PR PRN (17:26)
[2020-01-23] MEDS ORDERED: FAMOTIDINE 20 MG TAB PO PRN (17:26)
[2020-01-23] MEDS ORDERED: HYDROmorphone INJ 1 MG/ML SYRINGE IV PRN (17:26)
[2020-01-23] MEDS ORDERED: SOD PHOSPHATE/SOD BIPHOSPHATE ENEMA 132 ML BTL PR PRN (17:26)
[2020-01-23] MEDS ORDERED: NALOXONE HCL 0.4 MG/1 ML VIAL/CARP IV PRN (17:26)
[2020-01-23] MEDS ORDERED: DO NOT ADMINISTER FLU VACCINE PRN (17:26)
[2020-01-23] MEDS ORDERED: LORazepam 0.5 MG TAB PO PRN (17:26)
[2020-01-23] MEDS ORDERED: ONDANSETRON 4 MG OD TAB PO PRN (17:26)
[2020-01-23] MEDS ORDERED: HYDROmorphone INJ 0.5 MG/0.5 ML SYR IV PRN (17:26)
[2020-01-23] MEDS: SODIUM CHLORIDE 0.9% 1000ML 1,000 ML IV SCH ×2 (17:34→23:42)
--- NOTE | 2020-01-23 18:32 | Hospitalist Consultation ---
Date of Consultation January 23, 2020 Assessment & Plan (1) HTN (hypertension): S/P 1 removal of posterior instrumentation L3-L4. #2 exploration of fusion L3-L4. #3 lumbar decompression with bilateral medial facetectomies foraminotomies L2-3 L4-5. #4 posterior spinal fusion L2-L5. #5 placed posterior instrumentation L2-L5. #6 interbody fusion L2-3 and L4-5. #7 placement of peek cage 12 x 26 mm at L2-3 and 13 x 26 mm at L4-5. #8 placement of locally harvested morselized autograft in the posterior lateral gutters. #9 placement infuse collagen sponge, master graft in the posterior gutters and ostial amp interbody space. Blood pressure at this time appears to be controlled. Will continue home BP meds. (2) Morbid obesity: recommend lifestyle changes. Will defer further management to PCP. DVT pro: defer to primary team. Thank you for allowing us to participate in this case. Will sign off case. If any further problems occur, please do not hesitate to contact the medical service. History of Present Illness Reason for Consultation: Medical Management Attending Physician: Jaswinder Cormier DO History of Present Illness This is a 70 yo pleasant female who reports feeling well. She does not have significant past medical history: mainly hypertension and h istory of Osteoarthrirtis. She is also morbidly obese. Patient currently denies any new symptoms. She reports that she tolerated her procedure. Patient has no new complaints for me at this time. Allergies Allergy/AdvReac Type Severity Reaction Status Date / Time diazepam Allergy Intermediate VERY HYPER Verified 01/23/20 11:09 chlordiazepoxide Allergy Mild VERY HYPER Verified 01/23/20 11:09 Home Medications Home Medications Medication Instructions Recorded Confirmed Type amlodipine [Norvasc] 10 mg PO QPM 03/27/19 01/10/20 History ascorbic acid (vitamin C) 500 mg PO QPM 03/27/19 01/23/20 History citalopram [Celexa] 20 mg PO QPM 03/27/19 01/23/20 History hydrochlorothiazide 25 mg PO QAM 03/27/19 01/23/20 History loratadine [Claritin] 10 mg PO QAM 03/27/19 01/23/20 History metoprolol tartrate 50 mg PO BID 03/27/19 01/08/20 History pravastatin 40 mg PO QAM 03/27/19 01/23/20 History diclofenac sodium 75 mg PO BID 01/10/20 01/23/20 History losartan 100 mg PO QPM 01/10/20 01/23/20 History multivitamin 1 tab PO QAM 01/10/20 01/23/20 History Patient History Medical History Arthritis (Acute) History of ectopic (Acute) 2 ectopic pregnancies HTN (hypertension) (Acute) Hyperlipemia Morbid obesity Surgical History History of bladder suspension procedure (Acute) History of carpal tunnel release (Acute) RIGHT AND LEFT History of cataract extraction (Acute) RIGHT AND LEFT History of colonoscopy (Acute) History of dilatation and curettage (Acute) History of ileostomy (Acute) FROM HYSTERECTOMY SURGERY AND KNICKED BOWEL History of left knee replacement (Acute) History of lumbar fusion (Acute) History of reversal of ileostomy (Acute) History of surgical removal of ganglion cyst (Acute) History of total right knee replacement History of tubal ligation (Acute) Hx of total hysterectomy with removal of both tubes and ovaries Family History (Updated 01/24/20 @ 10:50 by Reza Le) Father Hypertension Social History Preferred Language: Slovenian Communication Ability: Effective 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 Beliefs That Will Affect Care: None Current Living Situation: Spouse Other Information That Helps Us Care for You: No Feels Safe at Home: Yes Safety Concerns: Feels Safe At This Time Smoking Status: Never smoker Do You Dip or Chew Tobacco: No ; Second Hand Exposure: No ; Tobacco Cessation Education Requested by Patient: No Hx Alcohol Use: No Hx Substance Use: No Review of Systems Review of Systems: All systems reviewed & are unremarkable except as noted in HPI & below Constitutional: no fever, no sweats and no malaise Eyes: no blind spots and no discharge Ear, Nose, Mouth, Throat: no ear pain and no tinnitus Respiratory: no cough Cardiovascular: no chest pain and no radiating jaw, neck or arm pain Gastrointestinal: no abdominal pain and no early satiety Genitourinary: no dysuria Musculoskeletal: no back pain Integumentary: no acne and no lesions Neurologic: no gait abnormality and no localized weakness Psychiatric: no behavioral changes and no anhedonia Endocrine: no fatigue Hematologic / Lymphatic: no easy bleeding Allergy / Immunological: no lip swelling Physical Exam Constitutional: WD/WN, vitals as above well developed and well nourished Eyes: PERRL, conjunctivae normal, anicteric sclerae ENMT: external ear and nose normal, oropharynx normal Neck: trachea midline, no thyromegaly Respiratory: normal respiratory effort, lungs clear to auscultation Cardiovascular: RRR, no murmur, no edema Gastrointestinal (Abdomen): normal bowel sounds, soft, nontender, no hepatosplenomegaly Musculoskeletal: Head/Neck/Chest: + head abnormal to inspection Neurologic: PERRL, EOMI, accommodation nl, no face palsy, no dysarthria Psychiatric: A+Ox3, euthymic affect Results & Data ([facility]) Vital Signs (Past 12 Hours) Vital Signs Temp Pulse Pulse Resp BP Pulse Ox 01/23/20 16:55 36.9 C 75 14 125/65 95 01/23/20 16:45 36.9 C 76 17 127/76 93 01/23/20 16:35 72 20 144/83 H 96 01/23/20 16:25 78 16 135/64 93 01/23/20 16:17 36.5 C 72 16 147/77 H 94 01/23/20 11:16 36.8 C 72 20 128/82 92 PG Care Time/CCT Total # of Minutes Spent Total Time Spent with Patient: Total time spent is greater than 50% in coordination of care (as documented) at patient's floor/unit and/or counseling patient: Coding Level of Care Code 54872 Inpt Consult Level 3 Diagnoses HTN (hypertension) I10 Morbid obesity E66.01 Time Spent (min) 35
[2020-01-23] MEDS: CEFAZOLIN 2000MG 2,000 MG/15 ML SYR IV SCH (19:26)
[2020-01-23] MEDS: KETOROLAC TROMETHAMINE 15 MG/ML VIAL IV SCH ×2 (19:26→23:43)
[2020-01-23] MEDS: LOSARTAN POTASSIUM 50 MG TAB PO SCH (21:32)
[2020-01-23] MEDS: AMLODIPINE BESYLATE 5 MG TAB PO SCH (21:32)
[2020-01-23] MEDS: METOPROLOL TARTRATE 50 MG TAB PO SCH (21:33)
[2020-01-23] MEDS: CITALOPRAM 20 MG TAB PO SCH (21:33)
[2020-01-23] MEDS: ASCORBIC ACID 500 MG TAB PO SCH (21:33)
[2020-01-23] MEDS: DOCUSATE SODIUM/SENNA 50/8.6MG TAB PO SCH (21:33)
[2020-01-24] MEDS: CEFAZOLIN 2000MG 2,000 MG/15 ML SYR IV SCH (03:57)
[2020-01-24] MEDS: POLYETHYLENE (MIRALAX) 17 GM PACK PO SCH ×4 (04:41→22:47)
[2020-01-24] MEDS: KETOROLAC TROMETHAMINE 15 MG/ML VIAL IV SCH ×2 (06:26→12:39)
[2020-01-24] MEDS: SODIUM CHLORIDE 0.9% 1000ML 1,000 ML IV SCH (06:26)
[2020-01-24 07:27] LABS: Basophils # (auto) 0.01 K/uL (0-0.2); Basophils % (auto) 0.1 %; Hematocrit (blood only) 33.7 % (37-47); Hemoglobin 10.6 g/dL (12.0-16.0); Immature Granulocytes # (auto) 0.06 K/uL (0.00-0.02); Immature Granulocytes % (auto) 0.4 %; Lymphocytes # (auto) 1.14 K/uL (1.2-3.4); Lymphocytes % (auto) 7.5 %; Mean Corpuscular Hemoglobin 29.7 pg (25-34); Mean Corpuscular Hgb Conc 31.5 g/dL (32-36); Mean Corpuscular Volume 94.4 fL (80-100); Mean Platelet Volume 9.5 fL (7.4-10.4); Monocytes # (auto) 0.49 K/uL (0.11-0.59); Monocytes % (auto) 3.2 %; Neutrophils # (auto) 13.48 K/uL (1.4-6.5); Neutrophils % (auto) 88.8 %; Platelet Count 227 K/uL (130-400); RDW Coefficient of Variation 14.9 % (11.5-14.5); RDW Standard Deviation 50.6 fL (36.4-46.3); Red Blood Count 3.57 M/uL (4.2-5.4); White Blood Count 15.18 K/uL (4.8-10.8)
[2020-01-24 07:58] LABS: Calcium 8.4 mg/dl (8.5-10.1); Creatinine Clr Calc Pharmacy 63.4 ml/min; Est GFR (African American) 53.8; Est GFR (Non-African American) 46.4; Potassium 3.9 mmol/L (3.5-5.1)
--- NOTE | 2020-01-24 08:14 | Anesthesiology Progress Note ---
Date of Service January 24, 2020 Anesthesia Post Procedure Vital Signs Vital Signs: Temp Pulse Pulse Resp BP Pulse Ox 01/24/20 08:05 36.7 C 83 18 96/61 L 94 01/24/20 02:45 36.5 C 73 18 95/56 L 93 01/23/20 23:05 37.1 C 75 16 100/63 92 01/23/20 20:12 37.0 C 85 17 106/65 94 01/23/20 19:14 36.6 C 79 17 118/71 96 01/23/20 18:20 36.6 C 81 17 104/66 94 01/23/20 17:15 36.7 C 72 16 100/64 97 01/23/20 16:55 36.9 C 75 14 125/65 95 01/23/20 16:45 36.9 C 76 17 127/76 93 01/23/20 16:35 72 20 144/83 H 96 01/23/20 16:25 78 16 135/64 93 01/23/20 16:17 36.5 C 72 16 147/77 H 94 01/23/20 11:16 36.8 C 72 20 128/82 92 Pain Intensity Bilateral Lower Back: Pain Intensity: 2 Notes Mental Status: alert / awake / arousable Patient Amnestic to Procedure: Yes Nausea / Vomiting: adequately controlled Pain: adequately controlled Airway Patency, RR, SpO2: stable & adequate BP & HR: stable & adequate Hydration State: stable & adequate Anesthetic Complications: no major complications apparent and Pt Satisfied with anesthetic care
[2020-01-24] MEDS: LORATADINE 10 MG TAB PO SCH (09:25)
[2020-01-24] MEDS: hydroCHLOROthiazide 25 MG TAB PO SCH (09:25)
[2020-01-24] MEDS: METOPROLOL TARTRATE 50 MG TAB PO SCH ×2 (09:25→21:37)
[2020-01-24] MEDS: PRAVASTATIN SOD 40 MG TAB PO SCH (09:25)
[2020-01-24] MEDS: MULTIVITAMIN TAB PO SCH (09:25)
--- NOTE | 2020-01-24 14:01 | Orthopedic Progress Note ---
Date of Service January 24, 2020 Assessment & Plan (1) Lumbar stenosis with neurogenic claudication: This time we will continue physical therapy monitor her FABIANA output hopefully discharge home in the next few days. Present on Admission?: Yes Admission and Anticipated Discharge Date Admission Date: January 23, 2020 Subjective Back pain is controlled leg symptoms markedly improved. Physical Exam Physical Exam: Patient is in the chair at the bedside is good strength testing. Appears comfortable. Results & Data ([facility]) Vital Signs (Past 12 Hours) Vital Signs Temp Pulse Resp BP Pulse Ox 01/24/20 09:23 106/66 01/24/20 08:05 36.7 C 83 18 96/61 L 94 01/24/20 02:45 36.5 C 73 18 95/56 L 93
[2020-01-24] MEDS: DOCUSATE SODIUM/SENNA 50/8.6MG TAB PO SCH (21:37)
[2020-01-24] MEDS: CITALOPRAM 20 MG TAB PO SCH (21:37)
[2020-01-24] MEDS: LOSARTAN POTASSIUM 50 MG TAB PO SCH (21:37)
[2020-01-24] MEDS: AMLODIPINE BESYLATE 5 MG TAB PO SCH (21:38)
[2020-01-24] MEDS: ASCORBIC ACID 500 MG TAB PO SCH (21:38)
[2020-01-24] MEDS: TRAMADOL HCL 50 MG TABLET PO PRN (21:39)
[2020-01-24] MEDS: OXYCODONE HCL IR 5 MG TAB (IMMEDIATE RELEASE) PO PRN (22:46)
[2020-01-24] MEDS: ACETAMINOPHEN 500 MG TAB PO PRN (22:46)
[2020-01-25] MEDS: POLYETHYLENE (MIRALAX) 17 GM PACK PO SCH ×4 (05:49→23:29)
[2020-01-25] MEDS: OXYCODONE HCL IR 5 MG TAB (IMMEDIATE RELEASE) PO PRN (08:18)
[2020-01-25] MEDS: LORATADINE 10 MG TAB PO SCH (09:08)
[2020-01-25] MEDS: hydroCHLOROthiazide 25 MG TAB PO SCH (09:08)
[2020-01-25] MEDS: METOPROLOL TARTRATE 50 MG TAB PO SCH ×2 (09:08→20:40)
[2020-01-25] MEDS: PRAVASTATIN SOD 40 MG TAB PO SCH (09:09)
[2020-01-25] MEDS: MULTIVITAMIN TAB PO SCH (09:09)
--- NOTE | 2020-01-25 11:56 | Orthopedic Progress Note ---
Date of Service January 25, 2020 Assessment & Plan (1) Lumbar stenosis with neurogenic claudication: This time I will give her a dose of Decadron today with help to her soreness. We will monitor FABIANA output anticipate discharge home tomorrow. Present on Admission?: Yes Admission and Anticipated Discharge Date Admission Date: January 23, 2020 Subjective Back pain controlled leg pain improved Physical Exam Physical Exam: Patient is in the chair at the bedside is good strength testing. Results & Data ([facility]) Vital Signs (Past 12 Hours) Vital Signs Temp Pulse Resp BP Pulse Ox 01/25/20 07:19 36.5 C 60 16 101/69 96
[2020-01-25] MEDS: ACETAMINOPHEN 500 MG TAB PO PRN (12:28)
[2020-01-25] MEDS: TRAMADOL HCL 50 MG TABLET PO PRN (12:28)
[2020-01-25] MEDS: DEXAMETHASONE SOD PHOSPHATE 8 MG in SYRINGE 0 ML IV STA ×2 (12:48→13:27)
[2020-01-25] MEDS: LOSARTAN POTASSIUM 50 MG TAB PO SCH (20:40)
[2020-01-25] MEDS: DOCUSATE SODIUM/SENNA 50/8.6MG TAB PO SCH (20:40)
[2020-01-25] MEDS: CITALOPRAM 20 MG TAB PO SCH (20:40)
[2020-01-25] MEDS: AMLODIPINE BESYLATE 5 MG TAB PO SCH (20:41)
[2020-01-25] MEDS: ASCORBIC ACID 500 MG TAB PO SCH (20:41)
[2020-01-26] MEDS: POLYETHYLENE (MIRALAX) 17 GM PACK PO SCH ×3 (05:49→18:00)
[2020-01-26] MEDS: PRAVASTATIN SOD 40 MG TAB PO SCH (08:52)
[2020-01-26] MEDS: MULTIVITAMIN TAB PO SCH (08:52)
[2020-01-26] MEDS: METOPROLOL TARTRATE 50 MG TAB PO SCH ×2 (08:52→20:28)
[2020-01-26] MEDS: hydroCHLOROthiazide 25 MG TAB PO SCH (08:53)
[2020-01-26] MEDS: LORATADINE 10 MG TAB PO SCH (08:53)
--- NOTE | 2020-01-26 09:01 | Orthopedic Progress Note ---
Date of Service January 26, 2020 Assessment & Plan (1) Lumbar stenosis with neurogenic claudication: Patient is stable postop day #3. Continue GI DVT prophylaxis. Her FABIANA drain is still placing about 50 cc per shift and she is not yet had a bowel movement. We will hold on discharge today and see how she is doing tomorrow likely discharging her to home. Admission and Anticipated Discharge Date Admission Date: January 23, 2020 Subjective Patient was seen bedside in room 321. She has discomfort in her back but the legs are feeling better. She is not yet had a bowel movement. She is tolerating p.o. intake. She denies any other numbness, tingling, paresthesias Physical Exam Physical Exam: On exam she is alert and oriented. Her abdomen soft and nontender. Her calves are supple nontender. Strength and sensation are grossly intact. Results & Data ([facility]) Vital Signs (Past 12 Hours) Vital Signs Temp Pulse Resp BP Pulse Ox 01/26/20 08:48 56 L 119/79 01/26/20 07:15 36.6 C 59 L 16 94/64 L 95 01/25/20 23:25 36.7 C 62 16 118/70 93
[2020-01-26] MEDS: OXYCODONE HCL IR 5 MG TAB (IMMEDIATE RELEASE) PO PRN ×2 (09:14→14:32)
[2020-01-26] MEDS: CITALOPRAM 20 MG TAB PO SCH (20:27)
[2020-01-26] MEDS: AMLODIPINE BESYLATE 5 MG TAB PO SCH (20:28)
[2020-01-26] MEDS: ASCORBIC ACID 500 MG TAB PO SCH (20:29)
[2020-01-26] MEDS: LOSARTAN POTASSIUM 50 MG TAB PO SCH (20:29)
[2020-01-26] MEDS: DOCUSATE SODIUM/SENNA 50/8.6MG TAB PO SCH (20:30)
[2020-01-27] MEDS: POLYETHYLENE (MIRALAX) 17 GM PACK PO SCH ×2 (00:12→06:25)
[2020-01-27] MEDS: ACETAMINOPHEN 500 MG TAB PO PRN (00:12)
[2020-01-27] MEDS: TRAMADOL HCL 50 MG TABLET PO PRN (00:12)
[2020-01-27] MEDS: METOPROLOL TARTRATE 50 MG TAB PO SCH (08:26)
[2020-01-27] MEDS: PRAVASTATIN SOD 40 MG TAB PO SCH (08:26)
[2020-01-27] MEDS: hydroCHLOROthiazide 25 MG TAB PO SCH (08:26)
[2020-01-27] MEDS: LORATADINE 10 MG TAB PO SCH (08:26)
[2020-01-27] MEDS: MULTIVITAMIN TAB PO SCH (08:26)
--- NOTE | 2020-01-27 08:37 | Discharge Summary ---
Date of Service January 27, 2020 Admission HPI Per Admitting Provider This is a 62-year-old female well-known to me that presents with worsening back and leg pain after failing extensive course of nonoperative care is here for surgical invention. Discharge Data Consultations 01/23/20 17:26 Consult Case Management - Discharge Planning Routine Consult Hospitalist Routine Procedures Performed Operation Date: 01/23/20 12:55 Actual Procedures p L2-L5 Decompression and Fusion, Interbody Fusion Bone L2-L3, L4-L5, Morphogenetic Protein, Spinal Cord Monitoring(Not Applicable) - Jaswinder Cormier DO s L3-L4 Hardware Removal(Not Applicable) - Jaswinder Cormier DO Hospital Course (1) Lumbar stenosis with neurogenic claudication: Patient is 70-year-old female with history physical examination radiographic images consistent with spinal stenosis. This reason she is brought to the operating room and undergone a lumbar decompression and fusion. This performed by Dr. Cormier under general anesthesia. She left the operating room with a FABIANA drain Alberts in place and transferred to PACU in stable condition. She was then transferred to the orthopedic floor she was placed on GI DVT prophylaxis and pain control measures. Throughout her hospital course her dressings remain clean dry and intact her calves remained supple nontender. Today postop day 4 she is deemed safe for home discharge. Her discharge instructions were change her dressing once daily until there is no drainage. Once there is no drainage she may begin showering. Prescription for oxycodone and tramadol were sent to her pharmacy. She is to be seen in the office in approximately 2 weeks or sooner if she develops any increased pain, numbness, or tingling.
[2020-01-27] MEDS: OXYCODONE HCL IR 5 MG TAB (IMMEDIATE RELEASE) PO PRN (09:46)
== END 2020-01-27 10:19 | disposition home or self-care (01) | DRG 454 ==
LOC: ASU 10:35 → 3E 16:11

== ENCOUNTER 2020-10-14 07:11 | Observation (INO) ==
--- NOTE | 2020-10-08 14:46 | Anesthesiology Consultation ---
Date of Service October 08, 2020 Assessment & Plan (1) Encounter for pre-operative examination: Chart Review Chart Review: Acceptable Risk for Surgery (pending preop Covid testing ) and Patient NOT seen in Pre Admission Testing Per nursing assessment 10/08/2020, patient resides in [facility]. Travels to [facility] for medical appts. Wears mask, uses good hand hygiene and socially distances. No known Covid positive contacts or Covid related symptoms. Covid test 10/08/20= results pending Seen by pulmonary 09/26/2020 = patient seen for follow-up on restrictive lung disease. Feels a great deal of this is secondary to her obesity. At this time in regards to her breathing, she is doing well. Continue to work with trying to exercise. Pulmonology aware of recent thyroid papillary carcinoma diagnosispulmonary set patient up with surgery to potentially have thyroid removed. Otherwise continue medications. L2-5 decompression and fusion, L3-4 hardware removal 01/23/2020 = done under GA with grade 1 view with Delacruz #2. ETT #7.5. Atraumatic DL x1. History Surgery Operation Date: 10/14/20 11:00 Proposed Procedures p Thyroid Resection Right Lobe Isthmus, Possible Subtotal Thyroidectomy, Possible Total Throidectomy - Leandro Monroy MD Height/Weight Height: 5 ft 5 in Weight: 141.521 kg Allergies Allergy/AdvReac Type Severity Reaction Status Date / Time diazepam Allergy Intermediate VERY HYPER Verified 10/08/20 13:57 chlordiazepoxide Allergy Mild VERY HYPER Verified 10/08/20 13:57 Medications Home Medications Medication Instructions Recorded Confirmed Last Taken amlodipine [Norvasc] 10 mg PO QPM 03/27/19 10/08/20 01/23/20 08:00 ascorbic acid (vitamin C) 500 mg PO QPM 03/27/19 10/08/20 01/22/20 20:30 citalopram [Celexa] 20 mg PO QPM 03/27/19 10/08/20 01/22/20 20:30 hydrochlorothiazide 25 mg PO QAM 03/27/19 10/08/20 01/22/20 07:00 loratadine [Claritin] 10 mg PO QAM 03/27/19 10/08/20 01/22/20 07:00 metoprolol tartrate 50 mg PO BID 03/27/19 10/08/20 01/23/20 08:00 pravastatin 40 mg PO QAM 03/27/19 10/08/20 01/22/20 07:00 losartan 100 mg PO QPM 01/10/20 10/08/20 01/22/20 20:30 multivitamin 1 tab PO QAM 01/10/20 10/08/20 01/22/20 07:00 budesonide-formoterol HFA 80 1 puffs INH BID gm 06/03/20 10/08/20 Unknown mcg-4.5 mcg/actuation aerosol inhaler diclofenac sodium 75 mg 75 mg PO BID tab 06/03/20 10/08/20 Unknown tablet,delayed release hydrocodone-homatropine 5 mg-1.5 5 ml PO Q4H PRN ml 06/03/20 10/08/20 Unknown mg/5 mL oral syrup montelukast 10 mg tablet 10 mg PO QPM tab 06/03/20 10/08/20 Unknown benzonatate 100 mg capsule 100 mg PO TID #90 cap 07/03/20 10/08/20 Unknown acetaminophen [Tylenol Extra 1,000 mg PO Q6H PRN 10/08/20 10/08/20 Unknown Strength] Past Medical History Medical History (Updated 10/08/20 @ 14:58 by Tori Nunez PA-C) Cardiac murmur HX- NO SIGNIFICANT VALVE ISSUES NOTED ON 2018 ECHO Chronic obstructive pulmonary disease F/U RUFINO ASHLEY HTN (hypertension) Hyperlipemia Migraine HX Morbid obesity Papillary carcinoma of thyroid Reason for thyroid procedure Restrictive lung disease Past Family History Family History Father Hypertension Cancer Brother Cancer Diabetes Past Surgical History Surgical History History of bladder suspension procedure History of carpal tunnel release RIGHT AND LEFT History of cataract extraction RIGHT AND LEFT History of colonoscopy (04/29/14) History of dilatation and curettage History of ileostomy FROM HYSTERECTOMY SURGERY AND KNICKED BOWEL History of left knee replacement History of lumbar fusion History of reversal of ileostomy History of surgical removal of ganglion cyst History of total right knee replacement History of tubal ligation Hx of total hysterectomy with removal of both tubes and ovaries Social History Smoking Status: Never smoker Do You Dip or Chew Tobacco: No Hx Alcohol Use: No Hx Substance Use: No substance use type: does not use Testing Laboratory Results Laboratory Tests 10/08/20 10/08/20 08:44 08:44 WBC 6.66 Hgb 13.0 Hct 41.9 Plt Count 191 Sodium 142 Potassium 3.6 Chloride 110 H Carbon Dioxide 27 BUN 24 H Creatinine 1.07 Glucose 150 H Electrocardiogram Date: 01/10/20 Sinus rhythm at 69 bpm with marked sinus arrhythmia. Otherwise normal EKG. Compared with EKG of 03/16/2017, no significant changes found per cardio. Chest X-Ray Date: 01/10/20 Findings: + NAD and + cardiomegaly Echocardiogram Date: 02/26/19 EF: 55-60% LV Function: normal RWMA: + none Valvular Disease: + no significant valvular disease Borderline right and left atrial enlargement. Pulmonary Function Test Date: 07/03/20 Moderate restrictive physiology without bronchodilation response and decreased DLCO which correlates for [facility]. Pattern may be consistent with body habitus. Other Testing Chest CT 06/30/2020 = There is no airspace consolidation or pleural effusion. Cardiomegaly with advanced coronary artery calcification. Coarse calcifications are noted in the right lobe of thyroid.
[~2020-10-14 07:11] MED LIST changes: -ACETAMINOPHEN 500 MG TAB PO SCH; -CEFAZOLIN 3000MG 72.5 ML IV SCH; -CeleBREX 200 MG CAP PO SCH; -GABAPENTIN 300 MG CAP PO SCH
[2020-10-14] MEDS ORDERED: MIDAZOLAM HCL 1 MG/ML 2ML VIAL ONE (09:06)
[2020-10-14] MEDS ORDERED: LIDOCAINE HCL 2% 2 ML VIAL/AMP(20MG/ML) INFIL ONE (09:06)
[2020-10-14] MEDS ORDERED: fentaNYL citrate 100 MCG/2 ML VIAL ONE ×2 (09:06→10:57)
[2020-10-14] MEDS ORDERED: PROPOFOL IV EMULSION 10 MG/ML 20 ML VIAL IV ONE (09:06)
--- NOTE | 2020-10-14 09:20 | History & Physical Bridge Note ---
Date of Service October 14, 2020 History & Physical Bridge Note I have examined the patient, reviewed the History & Physical and in the interval since the performance of the History & Physical I have noted the following changes of clinical significance: no changes noted pt marked all question answered
[2020-10-14] MEDS ORDERED: fentaNYL citrate 100 MCG/2 ML VIAL IV PRN (09:37)
[2020-10-14] MEDS ORDERED: ePHEDrine sulfate 50 MG/ML AMP IV PRN (09:37)
[2020-10-14] MEDS ORDERED: ONDANSETRON INJ 2 MG/ML 2 ML VIAL IV PRN ×2 (09:37→13:18)
[2020-10-14] MEDS ORDERED: ATROPINE SULFATE 0.1 MG/ML 10ML SYR IV PRN (09:37)
[2020-10-14] MEDS ORDERED: BUPIVACAINE 0.5 % 5 MG/1 ML MPF 30ML VIAL ONE (09:54)
[2020-10-14] MEDS ORDERED: LARYING-O-JET KIT (LTA) ONE (10:22)
[2020-10-14] MEDS ORDERED: DEXAMETHASONE SOD INJ 4 MG/ML VIAL ONE (10:22)
[2020-10-14] MEDS ORDERED: ROCURONIUM BROMIDE 10 MG/ML 5 ML VIAL IV ONE (10:22)
[2020-10-14] MEDS ORDERED: SUCCINYLCHOLINE CHLORIDE 20 MG/ML 10 ML VIAL IV ONE (10:22)
[2020-10-14] MEDS ORDERED: SUGAMMADEX SODIUM 200 MG/2 ML VIAL IV ONE (11:25)
--- NOTE | 2020-10-14 11:35 | Post Operative Brief Note ---
PG Immediate Post Op with CF Date of Surgery October 14, 2020 Pre & Post Diagnosis Operation Date: 10/14/20 09:20 Pre-Op Diagnosis: Papillary Carcinoma Thyroid Post-Op Diagnosis: Papillary Carcinoma Thyroid I identified the patient and participated in the time-out.: Yes Procedure Operation Date: 10/14/20 09:20 Actual Procedures p Total Throidectomy(Right) - Leandro Monroy MD Surgeon Leandro Monroy MD Operations Staff Specialist Security b mati cevallos Estimated Blood Loss 50 Findings Consistent with Post-Op Diagnosis Specimens Specimen Description: A. Thyroid: short stitch co[place] right lobe, long stitch coleman lesion. Permanent specimen in formalin per surgeon. Drains [place] Drain
--- NOTE | 2020-10-14 11:55 | Operative Report ---
PG Post Operative Report Pre & Post Diagnosis Operation Date: 10/14/20 09:20 Pre-Op Diagnosis: Papillary Carcinoma Thyroid Post-Op Diagnosis: Papillary Carcinoma Thyroid I identified the patient and participated in the time-out.: Yes Procedure Operation Date: 10/14/20 09:20 Actual Procedures p Total Throidectomy(Right) - Leandro Monroy MD Patient was brought into the operating room theater general trach anesthesia supine position timeout was had for protocol Covid a roll of medical out of a towel was placed underneath her shoulders neck hyperextended we set the patient up both arms were placed on an armboard since the bed was too small to hold her up her abdomen and arms systemic antibiotics was given a timeout was had the patient was identified we was a 2-0 silk to shun neck incision approximately a centimeter and half above both clavicle and sternal area incision was made through the marking the posterior subcutaneous tissues subsubcu venous structures were cauterized and ligated went on to the platysma which was divided we then elevated flaps superiorly and inferiorly usually by blunt dissection not getting into any bleeders at this point we approach the midline incised the fascia and onto the thyroid we exposed the right lobe of the thyroid first by mobilizing it medially mostly dissection which was blunt with the dissector retractor the inserted to retract this lateral muscles the patient had a 1.7 cm nodule in the right upper lobe which we could palpate it was quite hard and dissected fairly free from all the other running tissue there is no evidence of any lymph node in the area we then divided the suspensory ligament of Larry ligated with 2-0 silk and also the upper lobe vessels simply divided ligated with 2-0 silk we mobilized the lower lobes to we were able to similarly divide the vessels staying close to the thyroid with our dissection was close to the thyroid identified recurrent laryngeal nerve on the right we stayed away from it as with solid that it was gained into the tracheal area having accomplished this we then mobilized the instruments very easily using blunt dissection mostly from the trachea no strictly adhesions were identified we then turned our attention to the left lower lobe where the patient had a few nodularities radiographically and on exam it seemed to be more than 2 or 3 around the lobe therefore at this point I contemplated doing a subtotal versus a total I went on and proceed with a total thyroidectomy we had identified the recurrent nerve on the left and avoided it we stayed away from the parathyroids we least identify 1 parathyroid in an anterior left lobe the left laryngeal nerve was similarly identified as stated 10 follow-through into the trachea the thyroid was removed in total it was marked with a short stitch which was the right lobe and a large suture stating the lesion on right upper lobe the area was checked hemostasis appear satisfactory most of it we were ligating the tissue as we dissected off the thyroid from surrounding tissue with 2-0 and 3-0 silk used the cautery very sparingly and as we were close to anything lateral like the nerves. I elected to drain the operative field bringing out a 5/8 of an inch [place] drain through a stab wound inferior to the incision and cutting in half the area that was going into the neck area leaving a pair pants type of pattern putting 1 in each side of the neck we had dissected we closed the midline above the thyroid with interrupted 3-0 silk used 302 0 Vicryl to the upper maze approximate subc utaneous tissue and similarly the skin edges 4-0 Monocryl Steri-Strips applied [place] drain was sutured to schedule III 0 silk procedure was tolerated well by the patient estimated blood loss 50 cc patient was taken recovery in good condition addendum Blil cevallos was present throughout the procedure and helped with retraction exposure and wound closure Surgeon Leandro Monroy MD Track Dresser kenneth cevallos Estimated Blood Loss 50 Findings Consistent with Post-Op Diagnosis Specimens totalthyroid Description of Procedure merda I attest to the content of the Intraoperative Record and any orders documented therein. Any exceptions are noted below.
[2020-10-14] MEDS ORDERED: MoRPHine SULFATE 4 MG/ML 1 ML CARP\\VIAL IV PRN (13:18)
[2020-10-14] MEDS ORDERED: oxyCODONE/ACETAMINOPHEN 5mg/325mg TAB PO PRN ×2 (13:18)
[2020-10-14] MEDS ORDERED: MoRPHine SULFATE 2 MG/ML CARP IV PRN (13:18)
--- NOTE | 2020-10-14 13:26 | Anesthesiology Progress Note ---
Date of Service October 14, 2020 Anesthesia Post Procedure Vital Signs Vital Signs: Temp Pulse Pulse Resp BP Pulse Ox 10/14/20 13:19 37 C 65 18 149/85 H 94 10/14/20 12:55 36.5 C 69 14 151/97 H 93 10/14/20 12:45 36.5 C 70 17 150/88 H 96 10/14/20 12:35 70 14 139/93 92 10/14/20 12:25 71 15 156/97 H 92 10/14/20 12:15 71 14 146/98 H 94 10/14/20 12:05 69 14 149/91 H 94 10/14/20 11:58 36.4 C L 71 12 149/88 H 96 10/14/20 08:03 36.9 C 71 22 152/95 H 93 Pain Intensity Lower Back: Pain Intensity: 4 Neck: Pain Intensity: 4 Transfer of Care Handoff Completed per policy Notes Mental Status: alert / awake / arousable and participated in evaluation Patient Amnestic to Procedure: Yes Nausea / Vomiting: adequately controlled Pain: adequately controlled Airway Patency, RR, SpO2: stable & adequate BP & HR: stable & adequate Hydration State: stable & adequate Anesthetic Complications: no major complications apparent and Pt Satisfied with anesthetic care
[2020-10-14] MEDS: LACTATED RINGER'S 1,000 ML IV SCH (14:56)
[2020-10-14] MEDS: BENZONATATE 100 MG CAPSULE PO SCH ×2 (14:56→21:14)
[2020-10-14] MEDS: DICLOFENAC SODIUM 75 MG TABCR PO SCH (17:47)
[2020-10-14] MEDS ORDERED: LOSARTAN POTASSIUM 50 MG TAB PO SCH (21:00)
[2020-10-14] MEDS ORDERED: CITALOPRAM 20 MG TAB PO SCH (21:00)
[2020-10-14] MEDS ORDERED: MONTELUKAST SODIUM 10 MG TABLET PO SCH (21:00)
[2020-10-14] MEDS ORDERED: UMECLIDINIUM BROMIDE 62.5MCG/BLISTER 7 PUFFS/INHALER INH SCH (21:00)
[2020-10-14] MEDS ORDERED: amLODIPine BESYLATE 5 MG TAB PO SCH (21:00)
[2020-10-14] MEDS: CALCIUM 600MG + VIT D 400 IU TAB PO SCH (21:14)
[2020-10-14] MEDS: METOPROLOL TARTRATE 50 MG TAB PO SCH (21:15)
[2020-10-15] MEDS: LACTATED RINGER'S 1,000 ML IV SCH (00:07)
[2020-10-15] MEDS ORDERED: LEVOTHYROXINE SODIUM 125 MCG TABLET PO SCH (06:30)
--- NOTE | 2020-10-15 07:56 | Surgery Progress Note ---
Date of Service October 15, 2020 Assessment & Plan (1) Papillary carcinoma of thyroid: POD 1 total thyroidectomy seen with Dr. Monroy drain removed labs pending Admission and Anticipated Discharge Date Admission Date: October 14, 2020 Subjective no c/o, minimal pain, tolerating diet Physical Exam Neck: incision dry, some swati drainage, trachea midline Results & Data ([facility]) Vital Signs (Past 12 Hours) Vital Signs Temp Pulse Resp BP Pulse Ox 10/15/20 04:08 36.6 C 67 20 137/79 91 10/14/20 23:24 36.5 C 68 16 139/79 90 10/14/20 21:12 90 128/76 PG Care Time/CCT Total # of Minutes Spent Total Time Spent with Patient: Total time spent is greater than 50% in coordination of care (as documented) at patient's floor/unit and/or counseling patient: Coding Level of Care Code None Diagnoses Papillary carcinoma of thyroid C73
[2020-10-15] MEDS: DICLOFENAC SODIUM 75 MG TABCR PO SCH (08:28)
[2020-10-15] MEDS: BENZONATATE 100 MG CAPSULE PO SCH (08:29)
[2020-10-15] MEDS: METOPROLOL TARTRATE 50 MG TAB PO SCH (08:29)
[2020-10-15] MEDS: CALCIUM 600MG + VIT D 400 IU TAB PO SCH (08:30)
[2020-10-15] MEDS ORDERED: MULTIVITAMIN TAB PO SCH (09:00)
[2020-10-15] MEDS ORDERED: hydroCHLOROthiazide 25 MG TAB PO SCH (09:00)
[2020-10-15] MEDS ORDERED: LORATADINE 10 MG TAB PO SCH (09:00)
[2020-10-15] MEDS ORDERED: FLUTICASONE/VILANTEROL 100/25MCG 14 PUFFS/INHALER INH SCH (09:00)
[2020-10-15] MEDS ORDERED: PRAVASTATIN SOD 40 MG TAB PO SCH (09:00)
[2020-10-15 09:16] LABS: BUN Creatinine Ratio 21.8 (10-20); Calcium 9.1 mg/dl (8.5-10.1); Creatinine Clr Calc Pharmacy 76.9 ml/min; Est GFR (African American) 66.2; Est GFR (Non-African American) 57.2
--- NOTE | 2020-10-17 14:12 | Discharge Summary ---
Date of Service October 17, 2020 Principal Diagnosis Papillary carcinoma thyroid Discharge Exam Constitutional WD/WN, vitals as above Neck trachea midline incision clean, dry, no hematoma Discharge Data Allergies Allergy/AdvReac Type Severity Reaction Status Date / Time diazepam Allergy Intermediate VERY HYPER Verified 10/14/20 07:54 chlordiazepoxide Allergy Mild VERY HYPER Verified 10/14/20 07:54 Procedures Performed Operation Date: 10/14/20 09:20 Actual Procedures p Total Throidectomy(Right) - Leandro Monroy MD Hospital Course (1) Papillary carcinoma of thyroid: 70 y/o female was taken to the operating room for total thyroidectomy and transferred to the surgical floor for overnight observation. Calcium remained stable, she was started on routine calcium supplement and synthyroid. She was able to advance diet and tolerate oral analgesics. In the morning she was stable for discharge home. Zeyad drain was removed prior to discharge. Total Time Total Time Spent Total Time Spent (In Minutes): 10 Discharge Plan Discharge Items Patient Disposition: Home - Self-Care Reason For Visit: Papillary Carcinoma Thyroid Discharge Diagnosis: total thyroidectomy Activity: As commented below Lifting: No more than 10 pounds Bathing Comment: can shower tomorrow, remove bandage to shower Driving/Machine Use: no driving for 1 week Non-emergency contact: Surgeon Call non-emergency contact if: you have any medication questions, your pain is not controlled, you have a fever, your temperature is above 101.5, your wound has increased redness and your wound has increased drainage Follow-up/Referrals: Leandro Monroy MD [Surgeon] - 10/20/20 8:30 am (Call if you do not already have an appt in 1 week) Carlos Knapp DO [Primary Care Provider] - Diet: Regular Addtl Attending Provider Instructions: Pending Studies at Discharge: No Stand-Alone Forms: My [employer], Opioid Pain Management, Smoking Cessation Medications and DC Order Prescriptions: New levothyroxine [Synthroid] 125 mcg Tablet 125 mcg PO DAILYBB Qty: 30 RF: 0 Caltrate 600-D Plus Minerals 600 mg calcium- 800 unit-50 mg Tablet 1 tab PO BID Qty: 60 RF: 0 oxycodone-acetaminophen [Percocet] 5-325 mg tablet 1 - 2 tab PO Q4H PRN (Reason: pain, initial therapy, max 6 daily) Qty: 12 RF: 0 Continued benzonatate 100 mg capsule 100 mg PO TID Qty: 90 RF: 4 tiotropium bromide [Spiriva Respimat] 2.5 mcg/actuation mist 1 inh inhalation QPM RF: 0 diclofenac sodium 75 mg tablet,delayed release (DR/EC) 75 mg PO BID RF: 0 montelukast 10 mg tablet 10 mg PO QPM RF: 0 hydrocodone-homatropine 5-1.5 mg/5 mL syrup 5 ml PO Q4H PRN (Reason: Cough) RF: 0 budesonide-formoterol 80-4.5 mcg/actuation HFA aerosol inhaler 1 puffs INH BID RF: 0 pravastatin 40 mg Tablet 40 mg PO QAM RF: 0 citalopram [Celexa] 20 mg Tablet 20 mg PO QPM RF: 0 amlodipine [Norvasc] 10 mg Tablet 10 mg PO QPM RF: 0 metoprolol tartrate 50 mg Tablet 50 mg PO BID RF: 0 hydrochlorothiazide 25 mg Tablet 25 mg PO QAM RF: 0 loratadine [Claritin] 10 mg Tablet 10 mg PO QAM RF: 0 ascorbic acid (vitamin C) 500 mg Capsule 500 mg PO QPM RF: 0 multivitamin Tablet 1 tab PO QAM RF: 0 losartan 100 mg Tablet 100 mg PO QPM RF: 0 acetaminophen 500 mg Capsule 1,000 mg PO Q6H PRN (Reason: Pain) RF: 0 Discharge Orders: Discharge Order (Routine); Ordered 10/15/20 Ordered By: Fahad Keen/Other Patient Handouts: DVT Post Op Prevention Admission Data Admit Date/Time: 10/14/20 11:56 Attending Provider: Leandro Monroy Admit Provider: Leandro Monroy Primary Care Provider: Carlos Knapp Other Interventions: Discharge Summary Assessment (RN) Last Done: 10/15/20 12:00 Coding Level of Care Code D/C Day Management <30 mins Diagnoses Papillary carcinoma of thyroid C73
== END 2020-10-15 14:01 | disposition home or self-care (01) ==
LOC: ASU 07:11 → 3W 07:11